=== PATIENT | female | born 1985 | race Caucasian/White ===

== ENCOUNTER 2018-07-31 20:25 | Emergency (ER) | payer OTHER ==
[2018-07-31] MEDS ORDERED: ALBUTEROL NEB 2.5 MG/3 ML INH STA ×2 (20:39→22:28)
[2018-07-31] MEDS ORDERED: IPRATROPIUM 0.2 MG/ML NEB INH STA (20:39)
[2018-07-31 20:57] LABS: BASOPHILS # (AUTO) 0.1 10^3/uL (0.0-0.1); BASOPHILS % (AUTO) 0.6 %; EOSINOPHILS # (AUTO) 0.4 10^3/uL (0.0-0.7); EOSINOPHILS % (AUTO) 2.3 %; HGB - HEMOGLOBIN 15.1 g/dL (12.0-16.0); LYMPHOCYTES # (AUTO) 1.7 10^3/uL (1.5-3.5); LYMPHOCYTES % (AUTO) 9.7 %; MEAN CORPUSCULAR HEMOGLOBIN 30.2 pg (27.0-31.0); MEAN CORPUSCULAR HGB CONC 34.1 g/dL (32.0-36.0); MEAN CORPUSCULAR VOLUME 88.4 fL (81.0-99.0); MONOCYTES # (AUTO) 0.8 10^3/uL (0.0-1.0); MONOCYTES % (AUTO) 4.8 %; NEUTROPHILS # (AUTO) 14.2 10^3/uL (1.5-6.6); NEUTROPHILS % (AUTO) 82.6 %; PLT - PLATELET COUNT 287 10^3/uL (130-450); RED BLOOD COUNT 4.99 10^6/uL (4.20-5.40); RED CELL DISTRIBUTION WIDTH 14.1 % (12.0-15.0); WHITE BLOOD COUNT 17.1 x10^3/uL (4.8-10.8)
--- NOTE | 2018-07-31 20:57 | ED Physician Documentation ---
History of Present Illness - Stated complaint Stated Complaint: SOA/COUGH - Chief complaint Chief Complaint: General - Additonal information Additional information: 33-year-old female presents the emergency department with increasing shortness of breath, cough, nasal congestion and wheezing. The patient is a heavy smoker and reports URI symptoms earlier this week. Today the patient does develop significant wheezing and shortness of breath. The patient denies any history of lung disease. Symptoms are described as severe. No relieving factors. No other associated symptoms. No radiation of symptoms Review of Systems Constitutional: reports: Fever, Chills, Fatigue Eyes: denies: Loss of vision Ears: denies: Loss of hearing Nose: denies: Rhinorrhea / runny nose Throat: denies: Dental pain / toothache Cardiac: denies: Chest pain / pressure Respiratory: reports: Dyspnea, Cough, Wheezing GI: denies: Abdominal Pain : denies: Dysuria Skin: denies: Rash Musculoskeletal: denies: Neck pain Neurologic: denies: Generalized weakness Psychiatric: denies: Hallucinations Immunocompromised: denies: Chemotherapy PD PAST MEDICAL HISTORY - Past Medical History Past Medical History: Yes : None Psych: None Musculoskeletal: None - Past Surgical History Past Surgical History: No - Present Medications Home Medications: Ambulatory Orders Medication Instructions Recorded Confirmed RX: Albuterol Sulf [Ventolin Hfa 1 - 2 puffs INH Q4HR PRN #1 inhaler 08/01/18 Inhaler] RX: Doxycycline Hyclate 100 mg PO BID #20 capsule 08/01/18 - Allergies Allergies/Adverse Reactions: Allergies Allergy/AdvReac Type Severity Reaction Status Date / Time No Known Drug Allergies Allergy Verified 07/31/18 20:30 - Social History Does the pt smoke?: Yes Smoking Status: Heavy tobacco smoker Does the pt drink ETOH?: No Does the pt have substance abuse?: No - Immunizations Immunizations are current?: Yes - POLST Patient has POLST: No PD ED PE NORMAL - General General: Alert and oriented X 3. No: No acute distress (The patient appears short of breath) - HEENT HEENT: Atraumatic, PERRL, EOMI, Ears normal - Neck Neck: No JVD - Cardiac Cardiac: Other (Regular tachycardia) - Respiratory Respiratory: Other (Increased respiratory rate and diffuse wheezing with poor aeration) - Abdomen Abdomen: Soft, Non tender - Derm Derm: Normal color - Extremities Extremities: No deformity, No edema - Neuro Neuro: Alert and oriented X 3, Normal speech - Psych Psych: Normal affect Results - Vitals Vitals: Vital Signs - 24 hr 07/31/18 07/31/18 07/31/18 20:26 21:05 22:20 Temperature 36.4 C L 36.8 C Heart Rate 129 H 118 H 127 H Respiratory 24 15 21 Rate Blood Pressure 114/90 H 138/89 H O2 Saturation 92 92 07/31/18 07/31/18 07/31/18 22:34 23:08 23:39 Temperature 36.9 C Heart Rate 112 H 114 H 118 H Respiratory 15 15 20 Rate Blood Pressure 111/54 L 115/56 L O2 Saturation 96 93 08/01/18 08/01/18 08/01/18 00:20 00:26 01:27 Temperature 36.9 C Heart Rate 99 Respiratory 16 Rate Blood Pressure 108/61 O2 Saturation 87 L 90 L 88 L 08/01/18 08/01/18 01:56 02:36 Temperature 37 C Heart Rate 101 H 111 H Respiratory 23 24 Rate Blood Pressure 122/74 128/73 O2 Saturation 95 91 L Oxygen O2 Source Room air Oxygen Flow Rate 2 - Labs Labs: Laboratory Tests 07/31/18 07/31/18 07/31/18 20:40 20:52 20:52 WBC 17.1 H RBC 4.99 Hgb 15.1 Hct 44.1 MCV 88.4 MCH 30.2 MCHC 34.1 RDW 14.1 Plt Count 287 MPV 8.0 Neut # (Auto) 14.2 H Lymph # (Auto) 1.7 [place] # (Auto) 0.8 Eos # (Auto) 0.4 Baso # (Auto) 0.1 Absolute Nucleated RBC 0.01 Nucleated RBC % 0.0 D-Dimer 256.3 H Sodium 136 Potassium 3.9 Chloride 98 L Carbon Dioxide 27 Anion Gap 11.0 BUN 7 Creatinine 0.8 Estimated GFR (MDRD) 83 L Glucose 121 H Calcium 9.1 - Rads (name of study) CTA chest Radiology: Final report received (There is moderate severity mosaic attenuation within the lung parenchyma. I suspect that this is related to small airways disease. Differential diagnosis includes hypersensitivity pneumonitis or constrictive bronchiolitis. Other nonspecific pneumonitis is in the differential diagnosis.) PD MEDICAL DECISION MAKING - ED course ED course: The the patient had improvement, but was still requiring supplemental oxygen and was hypoxic on room air. I discussed the plan with the patient for admission to the hospital but the patient refused. The patient reports that she recently moved to the area and has nobody to help watch her children. The patient is requesting discharge at this time. I discussed with her warning signs and recommended that she should return to the emergency department any point for reevaluation. - Sepsis Event Vital Signs: Vital Signs - 24 hr 07/31/18 07/31/18 07/31/18 20:26 21:05 22:20 Temperature 36.4 C L 36.8 C Heart Rate 129 H 118 H 127 H Respiratory 24 15 21 Rate Blood Pressure 114/90 H 138/89 H O2 Saturation 92 92 07/31/18 07/31/18 07/31/18 22:34 23:08 23:39 Temperature 36.9 C Heart Rate 112 H 114 H 118 H Respiratory 15 15 20 Rate Blood Pressure 111/54 L 115/56 L O2 Saturation 96 93 08/01/18 08/01/18 08/01/18 00:20 00:26 01:27 Temperature 36.9 C Heart Rate 99 Respiratory 16 Rate Blood Pressure 108/61 O2 Saturation 87 L 90 L 88 L 08/01/18 08/01/18 01:56 02:36 Temperature 37 C Heart Rate 101 H 111 H Respiratory 23 24 Rate Blood Pressure 122/74 128/73 O2 Saturation 95 91 L Oxygen O2 Source Room air Oxygen Flow Rate 2 Departure - Departure Disposition: 01 Home, Self Care Clinical Impression: Dyspnea, Reactive airway disease, Hypoxia, Acute bronchitis Condition: Fair Follow-Up: Debra Miranda, MSN, BUSINESS INTELLIGENCE DIRECTOR-C [Credentialed Staff Provider] - Within 3 Days Prescriptions: RX: Albuterol Sulf [Ventolin Hfa Inhaler] 1 - 2 puffs INH Q4HR PRN #1 inhaler PRN Reason: Shortness Of Air/Wheezing RX: Doxycycline Hyclate 100 mg PO BID #20 capsule Comments: You have declined admission to the hospital and want to be discharged home. You understand that I felt that you would benefit from admission to the hospital given the significant pulmonary symptoms you are experiencing. Please follow-up with primary care for ongoing management. Please return to the emergency department immediately for reevaluation and further treatment and management at any point. Discharge Date/Time: 08/01/18 02:40
[2018-07-31 21:06] LABS: CALCIUM 9.1 mg/dL (8.5-10.3); CREATININE 0.8 mg/dL (0.4-1.0)
[2018-07-31] MEDS ORDERED: SODIUM CHLORIDE 0.9% 1,000 ML IV ONE (21:27)
[2018-07-31] MEDS ORDERED: DEXAMETHASONE 10 MG/ML VIAL IV STA (21:27)
[2018-07-31] MEDS ORDERED: ACETAMINOPHEN 500 MG TABLET PO STA (22:08)
[2018-07-31] MEDS ORDERED: IPRATROPIUM/ALBUTEROL 3 ML NEB INH STA (22:28)
--- NOTE | 2018-07-31 22:32 | XRAY Report ---
Reason: cough Procedure Date: 07/31/2018 Accession Number: [id number] / [id number] Procedure: XR - Chest 2 View X-Ray CPT Code: 14233 FULL RESULT: EXAM: CHEST RADIOGRAPHY EXAM DATE: 07/31/2018 10:15 PM. CLINICAL HISTORY: Productive cough. Shortness of breath. COMPARISON: None. TECHNIQUE: 2 views. FINDINGS: Lungs/Pleura: No focal opacities evident. No pleural effusion. No pneumothorax. Normal volumes. Mediastinum: Heart and mediastinal contours are unremarkable. Other: No bony abnormality identified. IMPRESSION: Normal 2-view chest radiography. RADIA
[2018-08-01] MEDS ORDERED: IOPAMIDOL-300 100 ML VIAL ONE (00:52)
[2018-08-01] MEDS ORDERED: IOPAMIDOL-300 100 ML VIAL IVP ONE ×2 (01:00→01:12)
[2018-08-01] MEDS ORDERED: ALBUTEROL NEB 2.5 MG/3 ML INH STA (01:41)
--- NOTE | 2018-08-01 01:59 | CT Report ---
Reason: SOA, elevated D-Dimer Procedure Date: 08/01/2018 Accession Number: [id number] / [id number] Procedure: CT - Chest Angio (PE) CPT Code: FULL RESULT: EXAM: CT ANGIOGRAM CHEST EXAM DATE: 08/01/2018 01:24 AM. CLINICAL HISTORY: Shortness of breath. Elevated D-dimer. COMPARISON: CHEST 2 VIEW 07/31/2018 10:10 PM. TECHNIQUE: Routine helical imaging was performed through the chest in the pulmonary arterial phase. IV Contrast: ISOVUE 300 80mL. Reconstructions: Coronal 3-D MIP reconstructions.Sagittal and coronal. In accordance with CT protocol optimization, one or more of the following dose reduction techniques were utilized for this exam: automated exposure control, adjustment of mA and/or KV based on patient size, or use of iterative reconstructive technique. FINDINGS: Pulmonary Arteries: There is adequate opacification up to the proximal segmental arteries. No evidence for main, lobar, or proximal segmental pulmonary emboli. Distal segmental and subsegmental vessels are difficult to assess due to suboptimal opacification. Lungs and Pleura: There is moderate patchy multifocal lobular distribution groundglass opacity with mild upper lobe predominance. No significant effusion. No definite pneumothorax. Central Airways: Visualized central airways are without suspicious filling defects. Chest Wall: No significant abnormality. Thyroid: No significant abnormality. Mediastinum: There is a nonspecific pathologically enlarged right-sided suprahilar lymph node measuring 3.0 x 1.9 cm (image 49 series 4). Increased number of small right paratracheal as well as mediastinal lymph nodes are present. These are nonspecific. Heart: Normal in size. No significant pericardial effusion. Aorta: Normal caliber. Upper Abdomen: Suspect moderate to severe hepatic steatosis. Bones: No suspicious bony lesions evident. IMPRESSION: 1. No evidence of pulmonary embolism. 2. There is moderate severity mosaic attenuation within the lung parenchyma. I suspect that this is related to small airways disease. Differential diagnosis includes hypersensitivity pneumonitis or constrictive bronchiolitis. Other nonspecific pneumonitis is in the differential diagnosis. 3. No significant pulmonary consolidation. No effusion. RADIA
[2018-08-01] MEDS ORDERED: DOXYCYCLINE 100 MG TABLET PO STA (02:04)
[2018-08-01 02:37] VITALS: BP 128/73
== END 2018-08-01 02:40 | disposition home or self-care (01) ==
LOC: ED 20:25
DX: J45.909 Unspecified asthma, uncomplicated (principal); R09.02 Hypoxemia; J20.9 Acute bronchitis, unspecified; F17.200 Nicotine dependence, unspecified, uncomplicated
CPT/HCPCS: 36415; 71046; 71275; 80048; 85025; 85379; 94640; 96361; 96365; 99284; A9270; Q9967

== ENCOUNTER 2018-08-01 04:37 | Inpatient (IN) | payer OTHER ==
--- NOTE | 2018-08-01 04:42 | ED Physician Documentation ---
History of Present Illness - Stated complaint Stated Complaint: SHORTNESS OF BREATH - Additonal information Additional information: 33-year-old female Return to the emergency department with increasing shortness of breath and dyspnea on exertion. The patient was in the emergency department earlier and declined admission to the hospital. The patient returns due to excessive difficulty breathing. No significant improvement from before. Review of Systems Constitutional: denies: Fever, Myalgias Eyes: denies: Loss of vision Ears: denies: Ear pain Nose: denies: Rhinorrhea / runny nose Cardiac: denies: Chest pain / pressure Respiratory: reports: Dyspnea, Wheezing GI: denies: Abdominal Pain : denies: Dysuria Skin: denies: Rash Musculoskeletal: denies: Neck pain Neurologic: denies: Generalized weakness Psychiatric: denies: Hallucinations PD PAST MEDICAL HISTORY - Past Medical History : None Psych: None Musculoskeletal: None - Past Surgical History Past Surgical History: No - Present Medications Home Medications: Ambulatory Orders Medication Instructions Recorded Confirmed Albuterol Sulf [Ventolin Hfa 1 - 2 puffs INH Q4HR PRN #1 inhaler 08/01/18 Inhaler] Doxycycline Hyclate 100 mg PO BID #20 capsule 08/01/18 - Allergies Allergies/Adverse Reactions: Allergies Allergy/AdvReac Type Severity Reaction Status Date / Time No Known Drug Allergies Allergy Verified 07/31/18 20:30 - Social History Does the pt smoke?: Yes Smoking Status: Heavy tobacco smoker Does the pt drink ETOH?: No Does the pt have substance abuse?: No - Immunizations Immunizations are current?: Yes - POLST Patient has POLST: No PD ED PE NORMAL - General General: Alert and oriented X 3. No: No acute distress (The patient appears to be in significant shortness of breath) - HEENT HEENT: Atraumatic, PERRL, EOMI, Ears normal - Neck Neck: No JVD - Cardiac Cardiac: Other (Tachycardia, regular rate) - Respiratory Respiratory: Other (Increased respiratory rate with diffuse bilateral wheezing) - Abdomen Abdomen: Non tender - Derm Derm: Normal color - Extremities Extremities: No deformity, No edema - Neuro Neuro: Alert and oriented X 3, Normal speech - Psych Psych: Normal mood Results - Vitals Vitals: Vital Signs - 24 hr 08/01/18 08/01/18 04:42 04:53 Temperature 36.9 C Heart Rate 128 H 112 H Respiratory 24 27 H Rate Blood Pressure 148/80 H 148/80 H O2 Saturation 89 L 93 Oxygen O2 Source Nasal cannula Oxygen Flow Rate 2 PD MEDICAL DECISION MAKING - ED course ED course: The patient was treated for an extensive period of time earlier in the evening and the patient declined admission at that point. Patient returns and is still significantly short of breath and now agrees to admission. The case was discussed with the hospitalist Dr. Powell who accepts the patient onto her service. - Sepsis Event Vital Signs: Vital Signs - 24 hr 08/01/18 08/01/18 04:42 04:53 Temperature 36.9 C Heart Rate 128 H 112 H Respiratory 24 27 H Rate Blood Pressure 148/80 H 148/80 H O2 Saturation 89 L 93 Oxygen O2 Source Nasal cannula Oxygen Flow Rate 2 Departure - Departure Disposition: ED Place in Observation Clinical Impression: Bronchitis, Hypoxia Acute bronchitis Qualifiers: Bronchitis organism: unspecified organism Qualified Code(s): J20.9 - Acute bronchitis, unspecified
[2018-08-01] MEDS ORDERED: ALBUTEROL NEB 2.5 MG/3 ML INH STA (05:13)
[2018-08-01] MEDS ORDERED: ONDANSETRON 4 MG/2 ML VIAL IVP PRN (05:19)
[2018-08-01] MEDS ORDERED: SODIUM CHLORIDE FLUSH 0.9% 10 ML SYRINGE IVP PRN (05:19)
[2018-08-01] MEDS ORDERED: AZITHROMYCIN INJ 500 MG in SODIUM CHLORIDE 0.9% 250 ML IV STA (05:24)
--- NOTE | 2018-08-01 06:29 | HISTORY & PHYSICAL EXAMINATION ---
Chief Complaint - Chief Complaint Chief Complaint: cough and wheezing w sob History of Present Illness - Admitted From Admitted From:: Home/ER - History Obtained From Records Reviewed: [facility] History obtained from: patient Exam Limitations: none - History of Present Illness HPI Comment/Other: She is a 33-year-old white female who moved from [place] after driving here a month ago. She started on [place] and went through [place], [place], [place], [place], [place] and then [facility]. She is always had a little bit of problem with wheezing and coughing since the age of about 21-22. She smokes 1 pack per day and started smoking at the age of 14. She moved here because she loves the [place], this is where she was proposed to by her . She is originally from [place], [place]. Her is an coil winder strap. He still flies back between [facility] and [place] to work in the oil rendon there. No one else is sick in her family. About a week ago she thought she developed a cold. Cough, sneezing, runny nose, sore throat. It made her chest feel congested and she started wheezing and coughing even more. It has been nonstop. No fever, no chills. Appetite is been a little bit diminished. No phlegm production, no hemoptysis. She came to the emergency room on July 31,Yesterday. Was in the emergency room around 6 hours with nebulizers and a steroid dose. She was discharged home with albuterol, doxycycline. He felt that she should come to into the hospital. She wanted to go home. She now returns in the early hours of the today continuing to cough and wheeze. He has given her more nebulizers and Decadron. No response and he would like her for treatment History - Past Medical History Cardiovascular: reports: Other (morbind obesity for 2-3 years) Respiratory: reports: COPD (Coughing and wheezing with mild postnasal drip since the age of 21-23) Neuro: reports: None Endocrine/Autoimmune: reports: None GI: reports: None CHIEF ACCOUNTANT: reports: Other () : reports: None HEENT: reports: None Psych: reports: None Musculoskeletal: reports: None MRSA Hx?: No - Family & Social History Family History Comment/Other: Mom is in her 60s and has depression. She does not know her father. No illness in siblings. Only child is healthy Living arrangement: At home Living Situation: With spouse/s.o. Social History Notes: She was born in [facility]. 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 She met her and they got engaged when he proposed here on [facility] and that is what made them come back here. They have only lived here for a month. He still continues to fly back to [place] to work in the oil rendon. She has been smoking 1 pack per day since the age of 15. She has no problems with alcohol abuse. She does not have any experience with cocaine, heroin, LSD, methamphetamines. - Substance History Use: Uses substance without health or social issues: Tobacco Use Issues: uncomplicated Abuse: Recurrent use of substance despite neg consequences: NONE Dependence: Experiences withdrawal or developed tolerances: Tobacco Dependence Issues: Anxiety Disorder - POLST Patient has POLST: No POLST Status: Full Code Meds/Allgy - Home Medications Home Medications: Ambulatory Orders Medication Instructions Recorded Confirmed Albuterol Sulf [Ventolin Hfa 1 - 2 puffs INH Q4HR PRN #1 inhaler 08/01/18 Inhaler] Doxycycline Hyclate 100 mg PO BID #20 capsule 08/01/18 - Allergies Allergies/Adverse Reactions: Allergies Allergy/AdvReac Type Severity Reaction Status Date / Time No Known Drug Allergies Allergy Verified 07/31/18 20:30 Review of Systems - Constitutional Constitutional: reports: Fatigue, Poor appetite. denies: Fever, Chills, Malaise, Weakness, Diaphoresis - Eyes Eyes: denies: Pain, Irritation, Amaurosis, Blurred vision, Field loss, Vision loss - Ears, Nose & Throat Ears, Nose & Throat: reports: Nasal obstruction, Nasal congestion, Postnasal drainage, Sore throat, Hoarseness. denies: Ear pain, Hearing loss, Hearing aids, Nasal pain, Nasal discharge - Cardiovascular Cariovascular: denies: Irregular heart rate, Palpitations, Chest pain, Edema - Respiratory Respiratory: reports: Cough, Wheezing, SOB at rest, SOB with exertion. denies: Sputum production, Snoring, Hemoptysis, Orthopnea, Apnea, Stridor - Gastrointestinal Gastrointestinal: reports: Diarrhea (Unless she eats eggs. Eggs now make her have quite a bit of diarrhea if she eats them). denies: Abdominal pain, Abdominal distention, Constipation, Change in bowel habits, Black stools, Bloody stools, Vomiting, Bile emesis - Genitourinary Genitourinary: reports: Urgency (There is now occurring after coitus), Other (. Change: After having sex, she is now starting to have trace bleeding. There is no pain with sex. Other than that trace bleeding she has not had a regular menstrual cycle for 2 years.Her is not using any control such as condom. She is not on oral contraceptives nor does she have an IUD. In spite of that she has not Gotten .). denies: Dysuria, Frequency - Musculoskeletal Musculoskeletal: denies: Muscle pain, Back pain, Muscle aches, Joint pain - Integumentary Integumentary: denies: Rash, Lesions - Neurological Neurological: reports: Headache (Generalized, diffuse. Ongoing for the last week or 2 and nonstop.). denies: General weakness, Focal weakness - Psychiatric Psychiatric: denies: Depression, Anxiety, Suicidal - Endocrine Endocrine: denies: Polyuria, Polydypsia - Hematologic/Lymphatic Hematologic/Lymphatic: denies: Anemia, Bruising, Petechiae Exam - Vital Signs Reviewed Vital Signs: Yes Vital Signs: Vital Signs x48h Temp Pulse Resp BP Pulse Ox 08/01/18 05:35 114 H 28 H 139/86 H 93 08/01/18 05:28 120 H 28 H 08/01/18 04:53 112 H 27 H 148/80 H 93 08/01/18 04:42 36.9 C 128 H 24 148/80 H 89 L - Physical Exam General Appearance: positive: Alert, Moderate distress, Other (Obese white female sitting upright in the bed, cannot lay down because of coughing and wheezing. Asking for a nicotine patch. Stress is from respiratory effort) Eyes Bilateral: positive: PERRL, Other (Sclera injected) ENT: positive: Other (Nasal tone of voice, rhinorrhea, coryza, back of throat injected but no exudate) Neck: positive: Lymphadenopathy (R) (shotty anterior cervical), Lymphadenopathy (L) (shotty anterior cervical). negative: Stiff neck, Carotid bruit Respiratory: positive: Chest non-tender, Wheezes, Other (Respiratory rate 28 at rest.). negative: Rales, Rhonchi Cardiovascular: positive: Regular rate & rhythm. negative: Systolic murmur, Gallop/S4, Friction rub Peripheral Pulses: positive: 2+ Abdomen: positive: Non-tender, Nml bowel sounds, No distention, Other (large abdominal panus). negative: Guarding, Rebound Skin: positive: Warm, Dry Extremities: positive: Non-tender, No pedal edema Neurologic/Psychiatric: positive: Oriented x3, CN's nml (2-12), Motor nml, Sensation nml Conclusion/Plan - Problem List (1) Asthma with COPD with exacerbation Conclusion/Plan: She presents as acute exacerbation of a long time asthmatic type problem in a smoker 1 pack per day. Groundglass opacity is seen on this patient CT.There is also an abnormal mediastinal node. It is not a high resolution CT. There is no fibrosis, and appears to be acute in its manifestation. The differential d iagnosis would be pulmonary edema, pulmonary hemorrhage, viral pneumonitis, acute eosinophilic pneumonia, acute phase radiation pneumonitis, Possibly atypical manifestation of sarcoidosis. Viral pneumonitis definitely Would apply to her. She appears to have had an antecedent viral illness that she thought was a cold. As for eosinophilic pneumonitis, there is no eosinophilia on Labs.She has not had radiation therapy. Could she possibly have pulmonary edema but she gives no antecedent history of a progressive dyspnea on exertion with leg edema. Plan: Place patient in observation status to see if we can turn her around with IV steroids, nebulizers, and IV antibiotics Reassess later on today. Consider transitioning to inpatient status if there is no improvement. I have also explained to her that her CT is not normal with regards to her groundglass opacities. In the outpatient setting she may need to be referred to a beet worker for bronchoscopy, lavage, or even biopsy. Since she is new to the [place], she will need to establish herself with a primary care provider and then be referred. Options would be to see someone in [place] with referral or go ahead and establish herself with [facility] that has the nearby beet worker for her to see I would also recommend limited CT of sinuses later today to evaluated for rhinosinusitis with asthma. (2) Tobacco abuse Conclusion/Plan: Requesting nicotine patch and that will be ordered (3) Dysfunctional uterine bleeding Conclusion/Plan: This is an association with weight gain over the last 3-4 years, amenorrhea, bleeding only with coitus. Plan: Check TSH Pelvic ultrasound - Lab Results Lab results reviewed: Yes Other Lab Results: Laboratory Tests 07/31/18 07/31/18 07/31/18 20:40 20:52 20:52 WBC 17.1 H Hgb 15.1 Hct 44.1 Plt Count 287 D-Dimer 256.3 H Sodium 136 Potassium 3.9 Chloride 98 L Carbon Dioxide 27 Anion Gap 11.0 BUN 7 Creatinine 0.8 Glucose 121 H - Diagnostic Imaging Results Diagnostic Imaging Results: positive: Final report reviewed Diagnostic Imaging Results Comments: CTA of chest: FINDINGS: Pulmonary Arteries: There is adequate opacification up to the proximal segmental arteries. No evidence for main, lobar, or proximal segmental pulmonary emboli. Distal segmental and subsegmental vessels are difficult to assess due to suboptimal opacification. Lungs and Pleura: There is moderate patchy multifocal lobular distribution groundglass opacity with mild upper lobe predominance. No significant effusion. No definite pneumothorax. Central Airways: Visualized central airways are without suspicious filling defects. Chest Wall: No significant abnormality. Thyroid: No significant abnormality. Mediastinum: There is a nonspecific pathologically enlarged right-sided suprahilar lymph node measuring 3.0 x 1.9 cm (image 49 series 4). Increased number of small right paratracheal as well as mediastinal lymph nodes are present. These are nonspecific. Heart: Normal in size. No significant pericardial effusion. Aorta: Normal caliber. Upper Abdomen: Suspect moderate to severe hepatic steatosis. Bones: No suspicious bony lesions evident. IMPRESSION: 1. No evidence of pulmonary embolism. 2. There is moderate severity mosaic attenuation within the lung parenchyma. I suspect that this is related to small airways disease. Differential diagnosis includes hypersensitivity pneumonitis or constrictive bronchiolitis. Other nonspecific pneumonitis is in the differential diagnosis. 3. No significant pulmonary consolidation. No effusion. Chest Xray: FINDINGS: Lungs/Pleura: No focal opacities evident. No pleural effusion. No pneumothorax. Normal volumes. Mediastinum: Heart and mediastinal contours are unremarkable. Other: No bony abnormality identified. IMPRESSION: Normal 2-view chest radiography. Core Measures - Anticipated LOS I expect patient to be DC'd or transferred within 96 hours.: Yes - DVT/VTE - Prophylaxis VTE/DVT Device ordered at admit?: Yes
[2018-08-01] MEDS: IPRATROPIUM/ALBUTEROL 3 ML NEB INH SCH ×4 (07:10→19:14)
[2018-08-01] MEDS: POLYETHYLENE GLYCOL 3350 17 GM PACKET PO SCH (08:21)
[2018-08-01] MEDS: methylPREDNISolone SUCCINATE 125 MG/2 ML VIAL IVP SCH ×3 (08:22→21:23)
[2018-08-01] MEDS: SODIUM CHLORIDE FLUSH 0.9% 10 ML SYRINGE IVP SCH ×2 (08:22→15:31)
[2018-08-01] MEDS: ENOXAPARIN 40 MG/0.4 ML SYRINGE SUBQ SCH (08:24)
[2018-08-01 08:43] LABS: BASOPHILS % (AUTO) 0.3 %; LYMPHOCYTES # (AUTO) 0.6 10^3/uL (1.5-3.5); LYMPHOCYTES % (AUTO) 3.8 %; MEAN CORPUSCULAR HEMOGLOBIN 30.6 pg (27.0-31.0); MEAN CORPUSCULAR HGB CONC 33.3 g/dL (32.0-36.0); MEAN CORPUSCULAR VOLUME 91.9 fL (81.0-99.0); MEAN PLATELET VOLUME 8.5 fL (7.9-10.8); MONOCYTES # (AUTO) 0.5 10^3/uL (0.0-1.0); MONOCYTES % (AUTO) 3.3 %; NEUTROPHILS # (AUTO) 14.5 10^3/uL (1.5-6.6); NEUTROPHILS % (AUTO) 92.6 %; PLT - PLATELET COUNT 267 10^3/uL (130-450); RED BLOOD COUNT 4.57 10^6/uL (4.20-5.40); WHITE BLOOD COUNT 15.6 x10^3/uL (4.8-10.8)
[2018-08-01 08:51] LABS: ALKALINE PHOSPHATASE 86 IU/L (42-121); ALT ALANINE AMINOTRANSFERASE 46 IU/L (10-60); AST ASPARTATE AMINOTRANSFERASE 33 IU/L (10-42); BILIRUBIN,TOTAL 0.3 mg/dL (0.2-1.0); BUN - BLOOD UREA NITROGEN 11 mg/dL (6-20); CALCIUM 8.8 mg/dL (8.5-10.3); CARBON DIOXIDE - CO2 20 mmol/L (21-32); CHLORIDE 105 mmol/L (101-111); CREATININE 0.9 mg/dL (0.4-1.0); GFR - MDRD 73 (>89); GLUCOSE 399 mg/dL (70-100); PHOSPHORUS 1.1 mg/dL (2.5-4.6); SODIUM 135 mmol/L (135-145); TOTAL PROTEIN 8.1 g/dL (6.7-8.2)
[2018-08-01] MEDS ORDERED: NICOTINE 14 MG PATCH TOP SCH (09:00)
[2018-08-01 09:27] LABS: HB2 TOTAL 15.1 g/dL; HEMOGLOBIN A1C 0.96 g/dL
[2018-08-01] MEDS ORDERED: SODIUM CHLORIDE 0.9% 500 ML IV ONE (10:07)
[2018-08-01] MEDS: SODIUM CHLORIDE 0.9% 1,000 ML IV SCH ×2 (10:52→19:17)
--- NOTE | 2018-08-01 11:34 | CT Report ---
Reason: new nasal discharge, asthma w groundgla opac Procedure Date: 08/01/2018 Accession Number: [id number] / [id number] Procedure: CT - Sinuses CPT Code: FULL RESULT: CT SINUSES WITHOUT CONTRAST INDICATION: 33-year-old female with new nasal discharge. TECHNIQUE: Helical scan through the orbits and mid facial region with reconstruction into 1 mm axial images. In addition, 1 mm sagittal and coronal re-formations have been generated. This examination was performed using a bone algorithm. Images are only available in bone windows. In accordance with CT protocol optimization, one or more of the following dose reduction techniques were utilized for this exam: automated exposure control, adjustment of mA and/or KV based on patient size, or use of iterative reconstructive technique. COMPARISON: None. FINDINGS: Right Frontal: There is minimal mucosal thickening inferiorly. Otherwise well aerated and clear. Ethmoid: Mucosal thickening is demonstrated in multiple air cells with associated subtotal opacification. No obvious air-fluid level is identified. Maxillary: There is polypoid mucosal thickening that is circumferential in the inferior half of the sinus. No air-fluid level is demonstrated. Sphenoid: Mild mucosal thickening. No air-fluid level. Drainage pathways: There is soft tissue opacification of the frontal recess, probably from localized mucosal thickening and/or retained mucus. Also demonstrated is soft tissue opacification of the maxillary ostium, ethmoid infundibulum and middle meatus, also likely from localized mucosal thickening. No discrete soft tissue density mass lesion is demonstrated. The sphenoethmoidal recess is small but appears patent. Left Frontal: Well aerated and clear. Ethmoid: There is mucosal thickening in multiple air cells with associated subtotal air cells. No obvious air-fluid level is seen. Maxillary: Polypoid-type mucosal thickening without air-fluid level. Sphenoid: Circumferential mucosal thickening. No air-fluid level is identified. Drainage pathways: There is soft tissue opacification of the upper frontal recess, probably from retained mucus. Also demonstrated is soft tissue opacification of the maxillary ostium and ethmoid infundibulum likely from localized mucosal thickening and/or retained mucus. The middle meatus is patent. The sphenoethmoidal recess appears patent. Nasal cavity: There is deviation of the nasal septum inferiorly and anteriorly to the left. An apical spur contacts the medial surface of the inferior turbinate. There is mucosal thickening over the right middle and inferior turbinates with associated significant narrowing of the right-sided nasal passages. The left-sided nasal passages are patent. No evidence of polyp or other mass in the nasal cavity. The nasopharyngeal soft tissue contours appear symmetric. Other: Middle ear cavities and mastoid air cells appear clear. Regional bony structures appear intact. Regional soft tissues are not evaluated. IMPRESSION: 1. Mucosal thickening is seen throughout the maxillary, ethmoid and sphenoid sinuses. However, no air-fluid level is demonstrated to confirm the presence of active infection. 2. No obvious obstructing lesion is demonstrated.
--- NOTE | 2018-08-01 12:26 | PROVIDER PROGRESS NOTE ---
Hospitalist Cross-cover Note - Cross-Cover Note Cross-Cover Note: The patient was seen and examined. Patient continues to have respiratory distress and is hypoxic. She continues to have wheezing on examination. The patient's lactic acid is elevated at 3.1, she does have leukocytosis with WBC of 15.6 and is tachycardic and tachypneic. The patient appears to have sepsis with likely source being pulmonary. It appears unlikely that the patient will be able to recover within the period of observation therefore she will be changed to inpatient status. We will also add ceftriaxone to her antibiotics along with azithromycin to cover for community-acquired pneumonia. The patient will be continued on her nebs and steroids. We will monitor her closely for any deterioration. If the patient is not improving over the next 24-48 hours she will likely need transfer for pulmonology.
[2018-08-01] MEDS: cefTRIAXone 2 GM in SODIUM CHLORIDE 0.9% MINIBAG 100 ML IV SCH (13:19)
--- NOTE | 2018-08-01 13:42 | Ultrasound Report ---
Reason: post coital bleeding w ammenorhea Procedure Date: 08/01/2018 Accession Number: [id number] / [id number] Procedure: US - Pelvic w/Transvaginal CPT Code: FULL RESULT: EXAM: PELVIC ULTRASOUND EXAM DATE: 08/01/2018 11:40 AM. CLINICAL HISTORY: Post coital bleeding w amenorrhea. COMPARISON: None. TECHNIQUE: Realtime transabdominal pelvic scan performed to identify the uterus and adnexa and as an overview of other pelvic structures, followed by transvaginal scan to provide greater detail of the uterus and adnexa, with static image documentation. FINDINGS: Uterus: 7.1 cm, volume 43 cc. Anteverted position. Normal overall size and echotexture. Masses: None. Endometrium: 3 mm. Normal. Cervix: Unremarkable. Right Ovary: Seen transabdominally only. 3.5 x 2.6 x 2.6 cm, volume 12 cc. Normal echotexture and blood flow. Left Ovary: Seen transabdominally only. 2.9 x 2.3 x 1.9 cm, volume 7 cc. Normal echotexture and blood flow. Free Fluid: None. Other: None. IMPRESSION: Normal pelvic ultrasound. RADIA
[2018-08-01] MEDS: ACETAMINOPHEN 325 MG TABLET PO PRN (15:47)
[2018-08-01] MEDS: NICOTINE 21 MG PATCH TOP SCH (17:22)
[2018-08-01] MEDS: INSULIN ASPART 300 UNIT/3 ML PEN SUBQ SCH (21:22)
[2018-08-02] MEDS: oxyCODONE 5 MG TABLET PO PRN ×2 (00:20→05:06)
[2018-08-02] MEDS: ALBUTEROL NEB 2.5 MG/3 ML INH PRN ×2 (00:30→03:19)
[2018-08-02] MEDS: SODIUM CHLORIDE FLUSH 0.9% 10 ML SYRINGE IVP SCH ×3 (02:04→16:46)
[2018-08-02] MEDS: SODIUM CHLORIDE 0.9% 1,000 ML IV SCH ×3 (02:40→17:47)
[2018-08-02] MEDS: methylPREDNISolone SUCCINATE 125 MG/2 ML VIAL IVP SCH ×3 (05:57→21:00)
[2018-08-02] MEDS: BENZOCAINE/MENTHOL LOZENGE MM PRN ×2 (06:00→14:21)
[2018-08-02 06:54] LABS: BASOPHILS # (AUTO) 0.1 10^3/uL (0.0-0.1); BASOPHILS % (AUTO) 0.3 %; HGB - HEMOGLOBIN 13.1 g/dL (12.0-16.0); LYMPHOCYTES % (AUTO) 4.8 %; MEAN CORPUSCULAR HEMOGLOBIN 30.4 pg (27.0-31.0); MEAN CORPUSCULAR HGB CONC 33.5 g/dL (32.0-36.0); MEAN CORPUSCULAR VOLUME 90.9 fL (81.0-99.0); MEAN PLATELET VOLUME 8.6 fL (7.9-10.8); MONOCYTES # (AUTO) 0.5 10^3/uL (0.0-1.0); MONOCYTES % (AUTO) 2.7 %; NEUTROPHILS # (AUTO) 18.6 10^3/uL (1.5-6.6); NEUTROPHILS % (AUTO) 92.2 %; PLT - PLATELET COUNT 280 10^3/uL (130-450); RED CELL DISTRIBUTION WIDTH 14.7 % (12.0-15.0); WHITE BLOOD COUNT 20.2 x10^3/uL (4.8-10.8)
[2018-08-02 06:56] LABS: ALBUMIN 3.5 g/dL (3.2-5.5); ALKALINE PHOSPHATASE 72 IU/L (42-121); ALT ALANINE AMINOTRANSFERASE 35 IU/L (10-60); AST ASPARTATE AMINOTRANSFERASE 19 IU/L (10-42); BILIRUBIN,TOTAL 0.2 mg/dL (0.2-1.0); BUN - BLOOD UREA NITROGEN 8 mg/dL (6-20); CALCIUM 8.4 mg/dL (8.5-10.3); CARBON DIOXIDE - CO2 22 mmol/L (21-32); CHLORIDE 107 mmol/L (101-111); CREATININE 0.6 mg/dL (0.4-1.0); GFR - MDRD 116 (>89); GLUCOSE 268 mg/dL (70-100); MAGNESIUM 2.1 mg/dL (1.7-2.8); PHOSPHORUS 2.6 mg/dL (2.5-4.6); SODIUM 139 mmol/L (135-145); TOTAL PROTEIN 7.1 g/dL (6.7-8.2)
[2018-08-02] MEDS: IPRATROPIUM/ALBUTEROL 3 ML NEB INH SCH (07:13)
[2018-08-02] MEDS: cefTRIAXone 2 GM in SODIUM CHLORIDE 0.9% MINIBAG 100 ML IV SCH (08:18)
[2018-08-02] MEDS: INSULIN ASPART 300 UNIT/3 ML PEN SUBQ SCH ×4 (08:20→21:01)
[2018-08-02] MEDS: AZITHROMYCIN 250 MG TABLET PO SCH (08:20)
[2018-08-02] MEDS: ENOXAPARIN 40 MG/0.4 ML SYRINGE SUBQ SCH (08:22)
[2018-08-02] MEDS: NICOTINE 21 MG PATCH TOP SCH (08:28)
[2018-08-02] MEDS: POLYETHYLENE GLYCOL 3350 17 GM PACKET PO SCH (08:29)
--- NOTE | 2018-08-02 09:26 | XRAY Report ---
Reason: Cough, shortness of breath Procedure Date: 08/02/2018 Accession Number: [id number] / [id number] Procedure: XR - Chest 1 View X-Ray CPT Code: 63552 FULL RESULT: EXAM: CHEST RADIOGRAPHY EXAM DATE: 08/02/2018 09:10 AM. CLINICAL HISTORY: Cough, shortness of breath. COMPARISON: CHEST 2 VIEW 07/31/2018 10:10 PM CHEST ANGIO 08/01/2018 1:14 AM. TECHNIQUE: 1 view. FINDINGS: Lungs/Pleura: Mild bilateral diffuse hazy and reticular opacities. No focal consolidation. No pneumothorax or pleural effusion. Mediastinum: Within exam limitations, the cardiomediastinal contour is normal. Other: None. IMPRESSION: Diffuse bilateral hazy opacities appear increased compared to prior. This finding may reflect pulmonary edema or an atypical inflammatory process, as discussed in the report for yesterday's CT. RADIA
--- NOTE | 2018-08-02 10:43 | PROVIDER PROGRESS NOTE ---
Assessment/Plan - Problem List (1) Sepsis Assessment/Plan: The patient had sepsis on presentation with leukocytosis 15.6, elevated lactic acid of 3.1, tachycardia with heart rate in the 120s, tachypneic with respiratory rate in the mid to high 20s and hypoxia with O2 saturation of 89% on room air. It appears that the patient's sepsis is secondary to respiratory infection thought to be community-acquired or atypical pneumonia. Patient was given IV fluids with improvement in lactic acid and heart rate. Patient also treated with IV antibiotics ceftriaxone and azithromycin and appears to have some improvement in her breathing. Patient's leukocytosis has worsened this may be secondary to steroids. Overall patient seems to be improving and sepsis seems to be resolving. (2) Acute respiratory failure with hypoxia Assessment/Plan: The patient presented with acute respiratory failure with hypoxia. Patient's oxygen saturation dropped to below 90% on room air. Patient had to be placed on 2 L of oxygen. The patient's acute respiratory failure with hypoxia appears to be secondary to pneumonia and reactive airway disease. The patient's CT scan shows changes that are concerning for hypersensitivity pneumonitis or bronchiolitis. At this point patient will be treated with IV antibiotics, IV steroids and nebs. If the patient is not improving we will consider transferring her to high level of care for pulmonology consultation. If patient does improve the patient will still need to have follow-up with pulmonology as an outpatient. Patient appears to be improving and we will try to wean her off of oxygen today. Continue IV antibiotics, steroids and nebs. (3) CAP (community acquired pneumonia) Qualifiers: Laterality: unspecified laterality Qualified Code(s): J18.9 - Pneumonia, unspecified organism Assessment/Plan: The patient has diffuse bilateral hazy opacities. There is still concern for possible pneumonitis or bronchiolitis. For now we will treat the patient for community acquired pneumonia. The patient's lung findings are atypical therefore we will also give atypical coverage with azithromycin. Plan: Patient will be continued on IV ceftriaxone and azithromycin Continue oxygen Continue steroids and nebs Patient appears to be improving (4) Reactive airway disease Qualifiers: Asthma severity: moderate Asthma persistence: persistent Asthma co mplication type: with acute exacerbation Qualified Code(s): J45.41 - Moderate persistent asthma with (acute) exacerbation Assessment/Plan: The patient has a history of smoking but no history of asthma or COPD. The patient appears to have reactive airway disease likely due to ongoing infection or possibly due to hypersensitivity pneumonitis or bronchiolitis given findings on CT scan. For now patient will be treated with nebs, steroids and antibiotics. We are hoping the patient will be able to improve and be able to be weaned off oxygen. The patient will need follow-up outpatient with pulmonology for PFTs and further workup and possible biopsy of her lungs. Patient is improving we will try to wean oxygen. Continue nebs and steroids. 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 She has never been diagnosed with diabetes in the past and never had a hemoglobin A1c tested in the past. The patient is currently on steroids which could be inducing the hyperglycemia. While the patient is hospitalized she will be placed on sliding scale insulin and a diabetic diet. We will check her blood glucose before meals at bedtime. Patient will receive diabetic teaching. At discharge we will place the patient on metformin and have her follow-up with a primary care physician she will need to lose weight and control her diet and exercise. She may still be able to come off of the metformin in the future if she is compliant with lifestyle changes. (6) Tobacco abuse Assessment/Plan: Patient's been smoking 1 pack a day since she was 15 years old. She states that she continues to smoke at home. She understands the risk involved with continued smoking. She is being placed on a nicotine patch while she is hospitalized. She does seem to be committed to quitting. She was counseled. (7) Dysfunctional uterine bleeding Assessment/Plan: TSH was found to be normal and pelvic ultrasound was also normal. Patient will need further workup with obstetrics and gynecology. - Current Meds Current Meds: Current Medications Generic Name Dose Route Start Last Admin Trade Name Freq PRN Reason Stop Dose Admin Acetaminophen 650 mg 08/01/18 05:19 08/01/18 15:47 Tylenol PO 650 mg Q4HR PRN Administration Pain 1 to 4 Azithromycin 500 mg 08/02/18 09:00 08/02/18 08:20 Zithromax PO 500 mg DAILY BROCK Administration Enoxaparin Sodium 40 mg 08/01/18 09:00 08/02/18 08:22 Lovenox SUBQ 40 mg DAILY BROCK Administration Sodium Chloride 1,000 mls @ 125 mls/hr 08/01/18 11:00 08/02/18 02:40 Normal Saline 0.9% IV 125 mls/hr .Q8H BROCK Administration Ceftriaxone Sodium 2 gm/ 100 mls @ 200 mls/hr 08/01/18 13:00 08/02/18 09:21 Sodium Chloride IV Infused DAILY BROCK Infusion Insulin Aspart 1 - 5 unit 08/01/18 21:00 08/02/18 08:20 Novolog SUBQ 3 unit 0800,1200,1700,2100 BROCK Administration Protocol Methylprednisolone Sodium Succinate 125 mg 08/01/18 06:00 08/02/18 05:57 Solu-Medrol (125mg Vial) IVP 125 mg TID BROCK Administration Nicotine 1 patch 08/01/18 15:50 08/02/18 08:28 Nicoderm TOP 1 patch DAILY BROCK Administration Oxycodone HCl 5 mg 08/01/18 05:19 08/02/18 05:06 Roxicodone PO 5 mg Q4HR PRN Administration Pain 5 to 7 Polyethylene Glycol 17 gm 08/01/18 09:00 08/02/18 08:29 Miralax PO Not Given DAILY BROCK Sodium Chloride 10 ml 08/01/18 09:00 08/02/18 02:04 Normal Saline Flush 0.9% IVP Not Given 0100,0900,1700 BROCK Throat Lozenges 1 lozenge 08/02/18 05:07 08/02/18 06:00 Cepacol MM 1 lozenge Q2HR PRN Administration Mouth Sore Pain - Lab Result Fish Bone Diagrams: 08/02/18 06:25 08/02/18 06:25 - Diagnostic Imaging Results Diagnostic Imaging Results: Final report reviewed - Additional Planning Condition/Complexity: Guarded My Orders: My Active Orders 08/01/18 11:00 Sodium Chloride 0.9% [Normal Saline 0.9%] 1,000 ml IV 125 mls/hr 08/01/18 13:00 cefTRIAXone [Rocephin] 2 gm Sodium Chloride 0.9% Minibag [Normal Saline 0.9% Minibag] 100 ml IV DAILY 08/01/18 15:50 Nicotine 21 mg Patch [Nicoderm] 1 patch TOP DAILY 08/01/18 18:23 Blood Glucose Checks - Eating [RC] 0800,1200,1700,2100 Initiate Hypoglycemia Protocol [RC] .protocol 08/01/18 21:00 Insulin Aspart [NovoLOG] 1 - 5 unit SUBQ 0800,1200,1700,2100 08/02/18 05:07 Benzocaine/Menthol [Cepacol] 1 lozenge MM Q2HR PRN 08/02/18 09:00 Azithromycin [Zithromax] 500 mg PO DAILY 08/02/18 10:12 Nebulizer/MDI Tx. [RC] QID Resp Teach Nebulizer/MDI [RC] .ONCE Levalbuterol [Xopenex] 1.25 mg INH Q4H PRN 08/02/18 Breakfast Carb-controlled Diet [DIET] 08/03/18 05:00 CBC - COMP BLD CT W/AUTO DIFF [HEME] DAILYLAB CMP, RFLX TO IONIZED CA IF [CHEM] DAILYLAB MAGNESIUM [CHEM] DAILYLAB PHOSPHORUS [CHEM] DAILYLAB 08/03/18 09:00 Chest 1 View X-Ray [XR] DAILY 08/04/18 05:00 CBC - COMP BLD CT W/AUTO DIFF [HEME] DAILYLAB CMP, RFLX TO IONIZED CA IF [CHEM] DAILYLAB MAGNESIUM [CHEM] DAILYLAB PHOSPHORUS [CHEM] DAILYLAB 08/05/18 05:00 CBC - COMP BLD CT W/AUTO DIFF [HEME] DAILYLAB CMP, RFLX TO IONIZED CA IF [CHEM] DAILYLAB MAGNESIUM [CHEM] DAILYLAB PHOSPHORUS [CHEM] DAILYLAB Plan Discussed with:: Patient Time Spent: 31-60 minutes Subjective - Subjective Patient Reports: Cough (Mild), Shortness of Breath (Improved), Other (No fevers or chills) Nursing Reports: No Complaints Objective Vital Signs: Vital Signs - 24 hr 08/01/18 08/01/18 08/01/18 11:14 12:35 15:06 Temperature 36.6 C Heart Rate 110 H 114 H Heart Rate [ 116 H Brachial] Respiratory 20 16 20 Rate Blood Pressure 123/54 L [Left Brachial artery] Blood Pressure [Right Brachial artery] O2 Saturation 93 08/01/18 08/01/18 08/02/18 16:05 19:20 00:21 Temperature 36.5 C 36.5 C Heart Rate 115 H Heart Rate [ 111 H 98 Brachial] Respiratory 24 22 20 Rate Blood Pressure [Left Brachial artery] Blood Pressure 129/62 110/64 [Right Brachial artery] O2 Saturation 93 96 08/02/18 08/02/18 08/02/18 00:30 03:20 07:16 Temperature Heart Rate 101 H 103 H 100 Heart Rate [ Brachial] Respiratory 20 20 18 Rate Blood Pressure [Left Brachial artery] Blood Pressure [Right Brachial artery] O2 Saturation 08/02/18 08/02/18 08/02/18 07:43 08:39 08:43 Temperature 36.3 C L Heart Rate Heart Rate [ 104 H 103 H 107 H Brachial] Respiratory 21 24 24 Rate Blood Pressure [Left Brachial artery] Blood Pressure 111/57 L [Right Brachial artery] O2 Saturation 94 93 92 08/02/18 09:30 Temperature Heart Rate Heart Rate [ 105 H Brachial] Respiratory Rate Blood Pressure [Left Brachial artery] Blood Pressure [Right Brachial artery] O2 Saturation 94 Oxygen O2 Source Room air Oxygen Flow Rate 2 I&O (Last 24 Hrs): Intake and Output Totals x24h 07/31/18 08/01/18 08/02/18 23:59 23:59 23:59 Intake Total 3120 1292.917 Output Total 3000 1850 Balance 120 -557.083 General: Alert, Oriented x3, Mild distress (Respiratory) HEENT: Atraumatic, PERRLA, EOMI, Mucous membr. moist/pink Neck: Supple, No JVD, No thyromegaly, +2 carotid pulse wo bruit, No LAD Lymphatic: no adenopathy Neuro: Alert, Non Focal, CN 2-12 Grossly Intact, Oriented Times 3 Cardiovascular: No murmurs, Other (Tachycardic) Respiratory: Wheezes, Rhonchi, Other (Decreased air movement bilaterally but improved since yesterday) Abdomen: Normal bowel sounds, Soft, No tenderness, No hepatospenomegaly Extremities: No clubbing, No cyanosis, No edema, Normal pulses Skin: No rashes, No breakdown - Results Results: Laboratory Results WBC 20.2 x10^3/uL (4.8-10.8) H 08/02/18 06:25 RBC 4.30 10^6/uL (4.20-5.40) 08/02/18 06:25 Hgb 13.1 g/dL (12.0-16.0) 08/02/18 06:25 Hct 39.1 % (37.0-47.0) 08/02/18 06:25 MCV 90.9 fL (81.0-99.0) 08/02/18 06:25 MCH 30.4 pg (27.0-31.0) 08/02/18 06:25 MCHC 33.5 g/dL (32.0-36.0) 08/02/18 06:25 RDW 14.7 % (12.0-15.0) 08/02/18 06:25 Plt Count 280 10^3/uL (130-450) 08/02/18 06:25 MPV 8.6 fL (7.9-10.8) 08/02/18 06:25 Neut # (Auto) 18.6 10^3/uL (1.5-6.6) H 08/02/18 06:25 Lymph # (Auto) 1.0 10^3/uL (1.5-3.5) L 08/02/18 06:25 [place] # (Auto) 0.5 10^3/uL (0.0-1.0) 08/02/18 06:25 Eos # (Auto) 0.0 10^3/uL (0.0-0.7) 08/02/18 06:25 Baso # (Auto) 0.1 10^3/uL (0.0-0.1) 08/02/18 06:25 Absolute Nucleated RBC 0.00 x10^3/uL 08/02/18 06:25 Nucleated RBC % 0.0 /100WBC 08/02/18 06:25 Sodium 139 mmol/L (135-145) 08/02/18 06:25 Potassium 3.9 mmol/L (3.5-5.0) 08/02/18 06:25 Chloride 107 mmol/L (101-111) 08/02/18 06:25 Carbon Dioxide 22 mmol/L (21-32) 08/02/18 06:25 Anion Gap 10.0 (6-13) 08/02/18 06:25 BUN 8 mg/dL (6-20) 08/02/18 06:25 Creatinine 0.6 mg/dL (0.4-1.0) 08/02/18 06:25 Estimated GFR (MDRD) 116 (>89) 08/02/18 06:25 Glucose 268 mg/dL (70-100) H 08/02/18 06:25 POC Whole Bld Glucose 243 mg/dL (70 - 100) H 08/02/18 07:36 Glycated Hemoglobin 8.0 % (4.6-6.2) H 08/01/18 08:21 Estim Average Glucose 183 (70-100) H 08/01/18 08:21 Lactic Acid 1.6 mmol/L (0.5-2.2) 08/01/18 17:15 Calcium 8.4 mg/dL (8.5-10.3) L 08/02/18 06:25 Ionized Calcium NO 08/02/18 06:25 Phosphorus 2.6 mg/dL (2.5-4.6) 08/02/18 06:25 Magnesium 2.1 mg/dL (1.7-2.8) 08/02/18 06:25 Total Bilirubin 0.2 mg/dL (0.2-1.0) 08/02/18 06:25 AST 19 IU/L (10-42) 08/02/18 06:25 ALT 35 IU/L (10-60) 08/02/18 06:25 Alkaline Phosphatase 72 IU/L (42-121) 08/02/18 06:25 Total Protein 7.1 g/dL (6.7-8.2) 08/02/18 06:25 Albumin 3.5 g/dL (3.2-5.5) 08/02/18 06:25 Globulin 3.6 g/dL (2.1-4.2) 08/02/18 06:25 Albumin/Globulin Ratio 1.0 (1.0-2.2) 08/02/18 06:25 TSH 0.81 uIU/mL (0.34-5.60) 08/01/18 05:00 ABX Reporting Has patient been on IV antibiotics over the past 48 hours?: No Current Medications - Current Medications Current Medications: Active Medications Generic Name Dose Route Start Last Admin Trade Name Freq PRN Reason Stop Dose Admin Acetaminophen 650 mg 08/01/18 05:19 08/01/18 15:47 Tylenol PO 650 mg Q4HR PRN Administration Pain 1 to 4 Azithromycin 500 mg 09/23/18 09:00 08/02/18 08:20 Zithromax PO 500 mg DAILY BROCK Administration Enoxaparin Sodium 40 mg 08/01/18 09:00 08/02/18 08:22 Lovenox SUBQ 40 mg DAILY BROCK Administration Sodium Chloride 1,000 mls @ 125 mls/hr 08/01/18 11:00 08/02/18 10:38 Normal Saline 0.9% IV 125 mls/hr .Q8H BROCK Administration Ceftriaxone Sodium 2 gm/ 100 mls @ 200 mls/hr 08/01/18 13:00 08/02/18 09:21 Sodium Chloride IV Infused DAILY BROCK Infusion Insulin Aspart 1 - 5 unit 08/01/18 21:00 08/02/18 08:20 Novolog SUBQ 3 unit 0800,1200,1700,2100 BROCK Administration Protocol Levalbuterol HCl 1.25 mg 08/02/18 10:12 Xopenex INH Q4H PRN Shortness of Air/Wheezing Methylprednisolone Sodium Succinate 125 mg 08/01/18 06:00 08/02/18 05:57 Solu-Medrol (125mg Vial) IVP 125 mg TID BROCK Administration Nicotine 1 patch 08/01/18 15:50 08/02/18 08:28 Nicoderm TOP 1 patch DAILY BROCK Administration Ondansetron HCl 4 mg 08/01/18 05:19 Zofran Inj IVP Q6HR PRN Nausea / Vomiting Ondansetron HCl 4 mg 08/01/18 05:19 Zofran Odt TL Q6HR PRN Nausea / Vomiting Oxycodone HCl 5 mg 08/01/18 05:19 08/02/18 05:06 Roxicodone PO 5 mg Q4HR PRN Administration Pain 5 to 7 Polyethylene Glycol 17 gm 08/01/18 09:00 08/02/18 08:29 Miralax PO Not Given DAILY BROCK Sodium Chloride 10 ml 08/01/18 05:19 Normal Saline Flush 0.9% IVP PRN PRN NEEDED PER PROVIDER ORDERS Sodium Chloride 10 ml 08/01/18 09:00 08/02/18 02:04 Normal Saline Flush 0.9% IVP Not Given 0100,0900,1700 [facility] Throat Lozenges 1 lozenge 08/02/18 05:07 08/02/18 06:00 Cepacol MM 1 lozenge Q2HR PRN Administration Mouth Sore Pain No Known Home Medications 08/01/18
[2018-08-02] MEDS: LEVALBUTEROL 1.25 MG/3 ML NEB INH PRN ×3 (11:00→20:16)
[2018-08-02] MEDS: ONDANSETRON ODT 4 MG TABLET TL PRN (12:22)
[2018-08-02] MEDS: ACETAMINOPHEN 325 MG TABLET PO PRN (14:18)
[2018-08-03] MEDS: SODIUM CHLORIDE 0.9% 1,000 ML IV SCH (02:01)
[2018-08-03] MEDS: SODIUM CHLORIDE FLUSH 0.9% 10 ML SYRINGE IVP SCH ×3 (02:02→16:48)
[2018-08-03] MEDS: ONDANSETRON ODT 4 MG TABLET TL PRN ×2 (03:26→09:24)
[2018-08-03] MEDS: ACETAMINOPHEN 325 MG TABLET PO PRN (03:26)
[2018-08-03 05:45] LABS: BASOPHILS % (AUTO) 0.1 %; HGB - HEMOGLOBIN 12.4 g/dL (12.0-16.0); LYMPHOCYTES # (AUTO) 1.1 10^3/uL (1.5-3.5); LYMPHOCYTES % (AUTO) 7.4 %; MEAN CORPUSCULAR HEMOGLOBIN 30.3 pg (27.0-31.0); MEAN CORPUSCULAR HGB CONC 33.4 g/dL (32.0-36.0); MEAN CORPUSCULAR VOLUME 90.7 fL (81.0-99.0); MEAN PLATELET VOLUME 8.5 fL (7.9-10.8); MONOCYTES # (AUTO) 0.5 10^3/uL (0.0-1.0); MONOCYTES % (AUTO) 3.3 %; NEUTROPHILS # (AUTO) 13.5 10^3/uL (1.5-6.6); NEUTROPHILS % (AUTO) 89.2 %; PLT - PLATELET COUNT 288 10^3/uL (130-450); RED CELL DISTRIBUTION WIDTH 14.5 % (12.0-15.0); WHITE BLOOD COUNT 15.1 x10^3/uL (4.8-10.8)
[2018-08-03 06:01] LABS: ALBUMIN 3.3 g/dL (3.2-5.5); ALKALINE PHOSPHATASE 60 IU/L (42-121); ALT ALANINE AMINOTRANSFERASE 42 IU/L (10-60); AST ASPARTATE AMINOTRANSFERASE 29 IU/L (10-42); BILIRUBIN,TOTAL 0.3 mg/dL (0.2-1.0); BUN - BLOOD UREA NITROGEN 14 mg/dL (6-20); CALCIUM 8.1 mg/dL (8.5-10.3); CARBON DIOXIDE - CO2 26 mmol/L (21-32); CHLORIDE 107 mmol/L (101-111); CREATININE 0.6 mg/dL (0.4-1.0); GFR - MDRD 116 (>89); GLUCOSE 205 mg/dL (70-100); MAGNESIUM 2.3 mg/dL (1.7-2.8); PHOSPHORUS 3.8 mg/dL (2.5-4.6); SODIUM 140 mmol/L (135-145); TOTAL PROTEIN 6.6 g/dL (6.7-8.2)
[2018-08-03 06:03] LABS: VBG PH 7.361 (7.31-7.41)
[2018-08-03] MEDS: methylPREDNISolone SUCCINATE 125 MG/2 ML VIAL IVP SCH (06:36)
--- NOTE | 2018-08-03 09:05 | PROVIDER PROGRESS NOTE ---
Assessment/Plan - Problem List (1) Sepsis Assessment/Plan: The patient had sepsis on presentation with leukocytosis 15.6, elevated lactic acid of 3.1, tachycardia with heart rate in the 120s, tachypneic with respiratory rate in the mid to high 20s and hypoxia with O2 saturation of 89% on room air. It appears that the patient's sepsis is secondary to respiratory infection thought to be community-acquired or atypical pneumonia. Patient was given IV fluids with improvement in lactic acid and heart rate. Patient also treated with IV antibiotics ceftriaxone and azithromycin and appears to have significant improvement in her breathing. Leukocytosis improved today but still not back to normal. Resolved (2) Acute respiratory failure with hypoxia Assessment/Plan: The patient presented with acute respiratory failure with hypoxia. Patient's oxygen saturation dropped to below 90% on room air. Patient had to be placed on 2 L of oxygen. The patient's acute respiratory failure with hypoxia appears to be secondary to pneumonia and reactive airway disease. The patient's CT scan shows changes that are concerning for hypersensitivity pneumonitis or bronchio litis. At this point patient will be treated with IV antibiotics, IV steroids and nebs. If the patient is not improving we will consider transferring her to high level of care for pulmonology consultation. If patient does improve the patient will still need to have follow-up with pulmonology as an outpatient. Weaned off O2 yesterday still on nebs, steroids and IV abx Resolved (3) CAP (community acquired pneumonia) Qualifiers: Laterality: unspecified laterality Qualified Code(s): J18.9 - Pneumonia, unspecified organism Assessment/Plan: The patient has diffuse bilateral hazy opacities. There is still concern for possible pneumonitis or bronchiolitis. For now we will treat the patient for community acquired pneumonia. The patient's lung findings are atypical therefore we will also give atypical coverage with azithromycin. Plan: Patient on day 3 of ceftriaxone and azithromycin IV will switch to PO augmentin and azithromycin after today and discharge with PO abx for total of 7 days of treatment On RA this am Continue steroids and nebs WBC is still elevated at 15K Improving (4) Reactive airway disease Qualifiers: Asthma severity: moderate Asthma persistence: persistent Asthma complication type: with acute exacerbation Qualified Code(s): J45.41 - Mode rate persistent asthma with (acute) exacerbation Assessment/Plan: The patient has a history of smoking but no history of asthma or COPD. The patient appears to have reactive airway disease likely due to ongoing infection or possibly due to hypersensitivity pneumonitis or bronchiolitis given findings on CT scan. For now patient will be treated with nebs, steroids and antibiotics. We are hoping the patient will be able to improve and be able to be weaned off oxygen. The patient will need follow-up outpatient with pulmonology for PFTs and further workup and possible biopsy of her lungs. Patient off O2 but still wheezing this am Will continue nebs and switch to PO steroids today Patient will likely be able to go home tomorrow if she continues to improve (5) Diabetes Qualifiers: Diabetes mellitus type: type 2 Diabetes mellitus penitentiary insulin use: without termite renewal inspector use Diabetes mellitus complication status: with hyperglycemia Qualified Code(s): E11.65 - Type 2 diabetes mellitus with hyperglycemia Assessment/Plan: The patient had hyperglycemia on presentation and hemoglobin A1c is found to be elevated at 8.0. She has never been diagnosed with diabetes in the past and never had a hemoglobin A1c tested in the past. The patient is currently on steroids which could be inducing the hyperglycemia. While the patient is hospitalized she will be placed on sliding scale insulin and a diabetic diet. We will check her blood glucose before meals at bedtime. Patient will receive diabetic teaching. At discharge we will place the patient on metformin and have her follow-up with a primary care physician she will need to lose weight and control her diet and exercise. She may still be able to come off of the metformin in the future if she is compliant with lifestyle changes. BG better this am down to 165. On SS insulin and DM diet (6) Tobacco abuse Assessment/Plan: Patient's been smoking 1 pack a day since she was 15 years old. She states that she continues to smoke at home. She understands the risk involved with continued smoking. She is being placed on a nicotine patch while she is hospitalized. She does seem to be committed to quitting. She was counseled. (7) Dysfunctional uterine bleeding Assessment/Plan: TSH was found to be normal and pelvic ultrasound was also normal. Patient will need further workup with obstetrics and gynecology. - Current Meds Current Meds: Current Medications Generic Name Dose Route Start Last Admin Trade Name Freq PRN Reason Stop Dose Admin Acetaminophen 650 mg 08/01/18 05:19 08/03/18 03:26 Tylenol PO 650 mg Q4HR PRN Administration Pain 1 to 4 Azithromycin 500 mg 08/02/18 09:00 08/02/18 08:20 Zithromax PO 500 mg DAILY BROCK Administration Enoxaparin Sodium 40 mg 08/01/18 09:00 08/02/18 08:22 Lovenox SUBQ 40 mg DAILY BROCK Administration Ceftriaxone Sodium 2 gm/ 100 mls @ 200 mls/hr 08/01/18 13:00 08/02/18 09:21 Sodium Chloride IV Infused DAILY [facility] Infusion Insulin Aspart 1 - 9 unit 08/02/18 12:30 08/02/18 21:01 Novolog SUBQ 7 unit 0800,1200,1700,2100 BROCK Administration Protocol Levalbuterol HCl 1.25 mg 08/02/18 10:12 08/02/18 20:16 Xopenex INH 1.25 mg Q4H PRN Administration Shortness of Air/Wheezing Nicotine 1 patch 08/01/18 15:50 08/02/18 08:28 Nicoderm TOP 1 patch DAILY BROCK Administration Ondansetron HCl 4 mg 08/01/18 05:19 08/03/18 03:26 Zofran Odt TL 4 mg Q6HR PRN Administration Nausea / Vomiting Oxycodone HCl 5 mg 08/01/18 05:19 08/02/18 05:06 Roxicodone PO 5 mg Q4HR PRN Administration Pain 5 to 7 Polyethylene Glycol 17 gm 08/01/18 09:00 08/02/18 08:29 Miralax PO Not Given DAILY BROCK Sodium Chloride 10 ml 08/01/18 05:19 08/02/18 21:00 Normal Saline Flush 0.9% IVP 10 ml PRN PRN Administration NEEDED PER PROVIDER ORDERS Sodium Chloride 10 ml 08/01/18 09:00 08/03/18 02:02 Normal Saline Flush 0.9% IVP Not Given 0100,0900,1700 BROCK Throat Lozenges 1 lozenge 08/02/18 05:07 08/02/18 14:21 Cepacol MM 1 lozenge Q2HR PRN Administration Mouth Sore Pain - Lab Result Lab results reviewed: Yes Fish Bone Diagrams: 08/03/18 05:30 08/03/18 05:30 - Diagnostic Imaging Results Diagnostic Imaging Results: Final report reviewed - Additional Planning Condition/Complexity: Improved My Orders: My Active Orders 08/02/18 09:00 Azithromycin [Zithromax] 500 mg PO DAILY 08/02/18 10:12 Levalbuterol [Xopenex] 1.25 mg INH Q4H PRN 08/02/18 12:30 Insulin Aspart [NovoLOG] 1 - 9 unit SUBQ 0800,1200,1700,2100 08/03/18 08:00 predniSONE [Deltasone] 40 mg PO DAILYWM 08/03/18 09:00 Chest 1 View X-Ray [XR] DAILY Calcium Citrate 250 mg PO DAILY 08/04/18 05:00 CBC - COMP BLD CT W/AUTO DIFF [HEME] DAILYLAB CMP, RFLX TO IONIZED CA IF [CHEM] DAILYLAB MAGNESIUM [CHEM] DAILYLAB PHOSPHORUS [CHEM] DAILYLAB 08/05/18 05:00 CBC - COMP BLD CT W/AUTO DIFF [HEME] DAILYLAB CMP, RFLX TO IONIZED CA IF [CHEM] DAILYLAB MAGNESIUM [CHEM] DAILYLAB PHOSPHORUS [CHEM] DAILYLAB Plan Discussed with:: Patient Time Spent: 31-60 minutes Subjective - Subjective Patient Reports: Feeling Better, Cough (Improving), Shortness of Breath (Improved), Other (Wheezing this am needs a neb treatment. No fevers overnight. Overall feels better.) Nursing Reports: No Complaints Objective Vital Signs: Vital Signs - 24 hr 08/02/18 08/02/18 08/02/18 09:30 11:01 15:09 Temperature Heart Rate 114 H 110 H Heart Rate [ 105 H Brachial] Respiratory 20 20 Rate Blood Pressure [Left Brachial artery] Blood Pressure [Right Brachial artery] O2 Saturation 94 08/02/18 08/02/18 08/03/18 15:30 20:17 00:00 Temperature 36.5 C 36.4 C L Heart Rate 95 Heart Rate [ 111 H 93 Brachial] Respiratory 20 18 20 Rate Blood Pressure [Left Brachial artery] Blood Pressure 122/66 108/68 [Right Brachial artery] O2 Saturation 93 96 08/03/18 08:00 Temperature 36.3 C L Heart Rate Heart Rate [ 86 Brachial] Respiratory 18 Rate Blood Pressure 127/62 [Left Brachial artery] Blood Pressure [Right Brachial artery] O2 Saturation 95 Oxygen O2 Source Room air Oxygen Flow Rate 2 I&O (Last 24 Hrs): Intake and Output Totals x24h 08/01/18 08/02/18 08/03/18 23:59 23:59 23:59 Intake Total 3120 4131.750 1000 Output Total 3000 3150 750 Balance 120 981.750 250 General: Alert, Oriented x3, Cooperative, Mild distress (Respiratory) HEENT: Atraumatic, PERRLA, EOMI, Mucous membr. moist/pink Neck: Supple, No JVD, No thyromegaly, +2 carotid pulse wo bruit, No LAD Lymphatic: no adenopathy Neuro: Alert, Non Focal, CN 2-12 Grossly Intact, Oriented Times 3 Cardiovascular: Regular rate, Normal S1, Normal S2, No murmurs Respiratory: Chest non-tender, Wheezes (Diffuse, expiratory mostly in the upper lungs), Other (Decreased breath sounds in lower lungs) Abdomen: Normal bowel sounds, Soft, No tenderness, No hepatospenomegaly Extremities: No clubbing, No cyanosis, No edema, Normal pulses Skin: No rashes, No breakdown - Results Results: Laboratory Results WBC 15.1 x10^3/uL (4.8-10.8) H 08/03/18 05:30 RBC 4.10 10^6/uL (4.20-5.40) L 08/03/18 05:30 Hgb 12.4 g/dL (12.0-16.0) 08/03/18 05:30 Hct 37.2 % (37.0-47.0) 08/03/18 05:30 MCV 90.7 fL (81.0-99.0) 08/03/18 05:30 MCH 30.3 pg (27.0-31.0) 08/03/18 05:30 MCHC 33.4 g/dL (32.0-36.0) 08/03/18 05:30 RDW 14.5 % (12.0-15.0) 08/03/18 05:30 Plt Count 288 10^3/uL (130-450) 08/03/18 05:30 MPV 8.5 fL (7.9-10.8) 08/03/18 05:30 Neut # (Auto) 13.5 10^3/uL (1.5-6.6) H 08/03/18 05:30 Lymph # (Auto) 1.1 10^3/uL (1.5-3.5) L 08/03/18 05:30 [place] # (Auto) 0.5 10^3/uL (0.0-1.0) 08/03/18 05:30 Eos # (Auto) 0.0 10^3/uL (0.0-0.7) 08/03/18 05:30 Baso # (Auto) 0.0 10^3/uL (0.0-0.1) 08/03/18 05:30 Absolute Nucleated RBC 0.00 x10^3/uL 08/03/18 05:30 Nucleated RBC % 0.0 /100WBC 08/03/18 05:30 VBG pH 7.361 (7.31-7.41) 08/03/18 05:30 Ionized Calcium 1.07 mmol/L (1.15-1.33) L 08/03/18 05:30 Sodium 140 mmol/L (135-145) 08/03/18 05:30 Potassium 4.2 mmol/L (3.5-5.0) 08/03/18 05:30 Chloride 107 mmol/L (101-111) 08/03/18 05:30 Carbon Dioxide 26 mmol/L (21-32) 08/03/18 05:30 Anion Gap 7.0 (6-13) 08/03/18 05:30 BUN 14 mg/dL (6-20) 08/03/18 05:30 Creatinine 0.6 mg/dL (0.4-1.0) 08/03/18 05:30 Estimated GFR (MDRD) 116 (>89) 08/03/18 05:30 Glucose 205 mg/dL (70-100) H 08/03/18 05:30 POC Whole Bld Glucose 165 mg/dL (70 - 100) H 08/03/18 07:34 Glycated Hemoglobin 8.0 % (4.6-6.2) H 08/01/18 08:21 Estim Average Glucose 183 (70-100) H 08/01/18 08:21 Lactic Acid 1.6 mmol/L (0.5-2.2) 08/01/18 17:15 Calcium 8.1 mg/dL (8.5-10.3) L 08/03/18 05:30 Ionized Calcium YES 08/03/18 05:30 Phosphorus 3.8 mg/dL (2.5-4.6) 08/03/18 05:30 Magnesium 2.3 mg/dL (1.7-2.8) 08/03/18 05:30 Total Bilirubin 0.3 mg/dL (0.2-1.0) 08/03/18 05:30 AST 29 IU/L (10-42) 08/03/18 05:30 ALT 42 IU/L (10-60) 08/03/18 05:30 Alkaline Phosphatase 60 IU/L (42-121) 08/03/18 05:30 Total Protein 6.6 g/dL (6.7-8.2) L 08/03/18 05:30 Albumin 3.3 g/dL (3.2-5.5) 08/03/18 05:30 Globulin 3.3 g/dL (2.1-4.2) 08/03/18 05:30 Albumin/Globulin Ratio 1.0 (1.0-2.2) 08/03/18 05:30 TSH 0.81 uIU/mL (0.34-5.60) 08/01/18 05:00 ABX Reporting Has patient been on IV antibiotics over the past 48 hours?: Yes Current Medications - Current Medications Current Medications: Active Medications Generic Name Dose Route Start Last Admin Trade Name Freq PRN Reason Stop Dose Admin Acetaminophen 650 mg 08/01/18 05:19 08/03/18 03:26 Tylenol PO 650 mg Q4HR PRN Administration Pain 1 to 4 Azithromycin 500 mg 08/02/18 09:00 08/02/18 08:20 Zithromax PO 500 mg DAILY BROCK Administration Calcium Citrate 250 mg 08/03/18 09:00 PO DAILY BROCK Enoxaparin Sodium 40 mg 08/01/18 09:00 08/02/18 08:22 Lovenox SUBQ 40 mg DAILY BROCK Administration Ceftriaxone Sodium 2 gm/ 100 mls @ 200 mls/hr 08/01/18 13:00 08/02/18 09:21 Sodium Chloride IV Infused DAILY [facility] Infusion Insulin Aspart 1 - 9 unit 08/02/18 12:30 08/02/18 21:01 Novolog SUBQ 7 unit 0800,1200,1700,2100 BROCK Administration Protocol Levalbuterol HCl 1.25 mg 08/02/18 10:12 08/02/18 20:16 Xopenex INH 1.25 mg Q4H PRN Administration Shortness of Air/Wheezing Nicotine 1 patch 08/01/18 15:50 08/02/18 08:28 Nicoderm TOP 1 patch DAILY BROCK Administration Ondansetron HCl 4 mg 08/01/18 05:19 Zofran Inj IVP Q6HR PRN Nausea / Vomiting Ondansetron HCl 4 mg 08/01/18 05:19 08/03/18 03:26 Zofran Odt TL 4 mg Q6HR PRN Administration Nausea / Vomiting Oxycodone HCl 5 mg 08/01/18 05:19 08/02/18 05:06 Roxicodone PO 5 mg Q4HR PRN Administration Pain 5 to 7 Polyethylene Glycol 17 gm 08/01/18 09:00 08/02/18 08:29 Miralax PO Not Given DAILY BROCK Prednisone 40 mg 08/03/18 08:00 Deltasone PO DAILYWM BROCK Sodium Chloride 10 ml 08/01/18 05:19 08/02/18 21:00 Normal Saline Flush 0.9% IVP 10 ml PRN PRN Administration NEEDED PER PROVIDER ORDERS Sodium Chloride 10 ml 08/01/18 09:00 08/03/18 02:02 Normal Saline Flush 0.9% IVP Not Given 0100,0900,1700 [facility] Throat Lozenges 1 lozenge 08/02/18 05:07 08/02/18 14:21 Cepacol MM 1 lozenge Q2HR PRN Administration Mouth Sore Pain No Known Home Medications 08/01/18
[2018-08-03] MEDS: INSULIN ASPART 300 UNIT/3 ML PEN SUBQ SCH ×4 (09:08→21:07)
[2018-08-03] MEDS: cefTRIAXone 2 GM in SODIUM CHLORIDE 0.9% MINIBAG 100 ML IV SCH (09:09)
[2018-08-03] MEDS: AZITHROMYCIN 250 MG TABLET PO SCH (09:09)
[2018-08-03] MEDS: CALCIUM CITRATE 250 MG TABLET PO SCH (09:09)
[2018-08-03] MEDS: predniSONE 20 MG TABLET PO SCH (09:09)
[2018-08-03] MEDS: ENOXAPARIN 40 MG/0.4 ML SYRINGE SUBQ SCH (09:10)
[2018-08-03] MEDS: NICOTINE 21 MG PATCH TOP SCH (09:10)
[2018-08-03] MEDS: POLYETHYLENE GLYCOL 3350 17 GM PACKET PO SCH (09:11)
--- NOTE | 2018-08-03 09:25 | XRAY Report ---
Reason: Cough, shortness of breath Procedure Date: 08/03/2018 Accession Number: [id number] / [id number] Procedure: XR - Chest 1 View X-Ray CPT Code: 33302 FULL RESULT: EXAM: CHEST RADIOGRAPHY EXAM DATE: 08/03/2018 09:04 AM. CLINICAL HISTORY: Cough, shortness of breath. COMPARISON: CHEST 1 VIEW 08/02/2018 8:57 AM. TECHNIQUE: 1 view. FINDINGS: Lungs/Pleura: Mild bilateral diffuse hazy and reticular opacities as before; aeration has not significantly changed compared to prior. No new focal airspace opacity. No pneumothorax or pleural effusion. Mediastinum: Within exam limitations, the cardiomediastinal contour is normal. Other: None. IMPRESSION: No significant change from prior. RADIA
[2018-08-03] MEDS: LEVALBUTEROL 1.25 MG/3 ML NEB INH PRN ×2 (11:14→15:58)
[2018-08-03] MEDS: guaiFENesin 600 MG TABLET PO SCH ×2 (13:06→21:03)
[2018-08-04] MEDS: SODIUM CHLORIDE FLUSH 0.9% 10 ML SYRINGE IVP SCH ×4 (00:57→23:46)
[2018-08-04] MEDS: ONDANSETRON ODT 4 MG TABLET TL PRN (04:09)
[2018-08-04 05:31] LABS: BASOPHILS % (AUTO) 0.6 %; EOSINOPHILS % (AUTO) 0.1 %; HGB - HEMOGLOBIN 12.4 g/dL (12.0-16.0); LYMPHOCYTES % (AUTO) 23.1 %; MEAN CORPUSCULAR HEMOGLOBIN 29.8 pg (27.0-31.0); MEAN CORPUSCULAR VOLUME 90.6 fL (81.0-99.0); MEAN PLATELET VOLUME 8.3 fL (7.9-10.8); NEUTROPHILS % (AUTO) 70.2 %; PLT - PLATELET COUNT 278 10^3/uL (130-450); RED BLOOD COUNT 4.16 10^6/uL (4.20-5.40); RED CELL DISTRIBUTION WIDTH 14.7 % (12.0-15.0); WHITE BLOOD COUNT 11.7 x10^3/uL (4.8-10.8)
[2018-08-04 05:44] LABS: ALBUMIN 3.2 g/dL (3.2-5.5); ALKALINE PHOSPHATASE 59 IU/L (42-121); ALT ALANINE AMINOTRANSFERASE 74 IU/L (10-60); AST ASPARTATE AMINOTRANSFERASE 38 IU/L (10-42); BILIRUBIN,TOTAL 0.3 mg/dL (0.2-1.0); BUN - BLOOD UREA NITROGEN 18 mg/dL (6-20); CALCIUM 8.1 mg/dL (8.5-10.3); CARBON DIOXIDE - CO2 28 mmol/L (21-32); CHLORIDE 103 mmol/L (101-111); CREATININE 0.6 mg/dL (0.4-1.0); GFR - MDRD 116 (>89); GLUCOSE 140 mg/dL (70-100); MAGNESIUM 2.3 mg/dL (1.7-2.8); SODIUM 139 mmol/L (135-145); TOTAL PROTEIN 6.3 g/dL (6.7-8.2)
[2018-08-04 05:58] LABS: VBG PH 7.378 (7.31-7.41)
[2018-08-04 06:39] LABS: ABNORMAL LYMPHS % (MANUAL) 0 %; BAND NEUTROPHILS % (MANUAL) 0 %
[2018-08-04 06:42] LABS: EOSINOPHILS # (MANUAL) 0.1 10^3/uL (0-0.7); LYMPHOCYTES # (MANUAL) 2.9 10^3/uL (1.5-3.5); LYMPHOCYTES % (MANUAL) 25 %; METAMYELOCYTES % (MANUAL) 2 %; MONOCYTES # (MANUAL) 0.8 10^3/uL (0.0-1.0); NEUTROPHILS # (MANUAL) 7.6 10^3/uL (1.5-6.6); NEUTROPHILS % (MANUAL) 65 %; PLATELET ESTIMATE, MANUAL NORMAL (130-450,000) (NORMAL); PLATELET MORPHOLOGY NORMAL APPEARANCE (NORMAL); RBC MORPHOLOGY (MULTIPLE) NORMAL APPEARANCE (NORMAL)
[2018-08-04 06:43] LABS: DIFFERENTIAL COMMENT MANUAL DIFFERENTIAL
[2018-08-04] MEDS: INSULIN ASPART 300 UNIT/3 ML PEN SUBQ SCH ×4 (07:48→21:36)
[2018-08-04] MEDS: predniSONE 20 MG TABLET PO SCH (07:58)
[2018-08-04] MEDS: NICOTINE 21 MG PATCH TOP SCH (08:29)
[2018-08-04] MEDS: ENOXAPARIN 40 MG/0.4 ML SYRINGE SUBQ SCH (08:31)
[2018-08-04] MEDS: cefTRIAXone 2 GM in SODIUM CHLORIDE 0.9% MINIBAG 100 ML IV SCH (08:31)
[2018-08-04] MEDS: CALCIUM CITRATE 250 MG TABLET PO SCH (08:32)
[2018-08-04] MEDS: AZITHROMYCIN 250 MG TABLET PO SCH (08:32)
[2018-08-04] MEDS: guaiFENesin 600 MG TABLET PO SCH ×2 (08:32→20:11)
[2018-08-04] MEDS: POLYETHYLENE GLYCOL 3350 17 GM PACKET PO SCH (08:33)
--- NOTE | 2018-08-04 16:51 | PROVIDER PROGRESS NOTE ---
Assessment/Plan - Problem List (1) Atypical pneumonia Assessment/Plan: Ground glassappearance was seen on CXR. Pt remains on antibiotics, nebs and steroids. She will need outpt Pulmonary management. Her has secured a new PCP for her, as of today, she stated. (2) Asthma with COPD with exacerbation Assessment/Plan: As in #1. Pt will not need supplemental oxygen at [facility]. Will start PT eval before [facility]. (3) Diarrhea Assessment/Plan: Most likely due to new antibiotics. Will check for C.diff. If persists, she will need management with anti-diarrheal agents amd or treatment for psudomembranous colitis. (4) Hematuria Assessment/Plan: Will obtain a urinalysis and culture if indicated. This could also be vaginal bleeding, per patient, but she does not have regular menses, Will monitor and she may need a TECHNICAL ACCOUNT MANAGER consult. Continue to monitor H/H with daily CBC. (5) Diabetes Qualifiers: Diabetes mellitus type: type 2 Diabetes mellitus correction insulin use: without correction use Diabetes mellitus complication status: with hyperglycemia Qualified Code(s): E11.65 - Type 2 diabetes mellitus with hyperglycemia Assessment/Plan: The patient is eager to learn more about her diet for DM. She is requesting an afternoon snack. Will order. - Current Meds Current Meds: Current Medications Generic Name Dose Route Start Last Admin Trade Name Freq PRN Reason Stop Dose Admin Acetaminophen 650 mg 08/01/18 05:19 08/03/18 03:26 Tylenol PO 650 mg Q4HR PRN Administration Pain 1 to 4 Azithromycin 500 mg 08/02/18 09:00 08/04/18 08:32 Zithromax PO 500 mg DAILY BROCK Administration Calcium Citrate 250 mg 08/03/18 09:00 08/04/18 08:32 PO 250 mg DAILY BROCK Administration Enoxaparin Sodium 40 mg 08/01/18 09:00 08/04/18 08:31 Lovenox SUBQ 40 mg DAILY BROCK Administration Guaifenesin 600 mg 08/03/18 12:00 08/04/18 08:32 Mucinex PO 600 mg BID BROCK Administration Ceftriaxone Sodium 2 gm/ 100 mls @ 200 mls/hr 08/01/18 13:00 08/04/18 09:01 Sodium Chloride IV Infused DAILY BROCK Infusion Insulin Aspart 2 - 10 unit 08/03/18 21:00 08/04/18 12:03 Novolog SUBQ 2 unit 0800,1200,1700,2100 BROCK Administration Protocol Levalbuterol HCl 1.25 mg 08/02/18 10:12 08/03/18 15:58 Xopenex INH 1.25 mg Q4H PRN Administration Shortness of Air/Wheezing Nicotine 1 patch 08/01/18 15:50 08/04/18 08:29 Nicoderm TOP 1 patch DAILY BROCK Administration Ondansetron HCl 4 mg 08/01/18 05:19 08/04/18 04:09 Zofran Odt TL 4 mg Q6HR PRN Administration Nausea / Vomiting Oxycodone HCl 5 mg 08/01/18 05:19 08/02/18 05:06 Roxicodone PO 5 mg Q4HR PRN Administration Pain 5 to 7 Polyethylene Glycol 17 gm 08/01/18 09:00 08/04/18 08:33 Miralax PO Not Given DAILY BROCK Prednisone 40 mg 08/03/18 08:00 08/04/18 07:58 Deltasone PO 40 mg DAILYWM BROCK Administration Sodium Chloride 10 ml 08/01/18 05:19 08/02/18 21:00 Normal Saline Flush 0.9% IVP 10 ml PRN PRN Administration NEEDED PER PROVIDER ORDERS Sodium Chloride 10 ml 08/01/18 09:00 08/04/18 08:31 Normal Saline Flush 0.9% IVP 10 ml 0100,0900,1700 BROCK Administration Throat Lozenges 1 lozenge 08/02/18 05:07 08/02/18 14:21 Cepacol MM 1 lozenge Q2HR PRN Administration Mouth Sore Pain - Lab Result Fish Bone Diagrams: 08/04/18 05:06 08/04/18 05:06 - Additional Planning My Orders: My Active Orders 08/04/18 C. DIFF BY PCR [RAPID] Urgent Urinalysis w/ Micro, Reflex Cult If [UA w/ MICROSCOPIC, CULT IF] [URIN] Routine Evaluate and Treat PT [PT] Routine 08/04/18 13:30 Oxygen Desat. Study w/Exercise [RC] .ONCE Subjective - Subjective Patient Reports: Feeling Better, Diarrhea, Shortness of Breath, Other (Pt says this present inhaler is better than the last one. She started to have diarrhea today with a foul small. She was "scared to walk in hallway" with RT for satur ation check, since she has not yet been OOB to walk, only to bedside commode, since admission.m Agter the walk, she was incontinent of urine which was blood tinged.) Objective Vital Signs: Vital Signs - 24 hr 08/03/18 08/04/18 08/04/18 20:25 00:00 07:48 Temperature 36.6 C 36.4 C L Heart Rate 84 Heart Rate [ 83 84 Brachial] Respiratory 16 18 20 Rate Blood Pressure 114/72 113/64 [Right Brachial artery] O2 Saturation 95 95 08/04/18 08/04/18 08/04/18 09:00 14:00 15:48 Temperature 36.6 C Heart Rate 76 111 H Heart Rate [ 79 Brachial] Respiratory 16 18 Rate Blood Pressure 129/77 [Right Brachial artery] O2 Saturation 97 Oxygen O2 Source Room air Oxygen Flow Rate 2 I&O (Last 24 Hrs): Intake and Output Totals x24h 08/02/18 08/03/18 08/04/18 23:59 23:59 23:59 Intake Total 4131.750 3550 1290 Output Total 3150 1550 200 Balance 172.070 8058 1090 General: Alert, Oriented x3 HEENT: Other (Appears Cushingoid.) Neck: Supple, No JVD Neuro: Non Focal Cardiovascular: Regular rate, No murmurs Respiratory: No respiratory distress, Breath sounds nml, Other (Prolonged expiratory phase withput wheezing.) Abdomen: Other (Obese, soft, non-tender.) Extremities: No edema - Results Results: Laboratory Results WBC 11.7 x10^3/uL (4.8-10.8) H 08/04/18 05:06 RBC 4.16 10^6/uL (4.20-5.40) L 08/04/18 05:06 Hgb 12.4 g/dL (12.0-16.0) 08/04/18 05:06 Hct 37.7 % (37.0-47.0) 08/04/18 05:06 MCV 90.6 fL (81.0-99.0) 08/04/18 05:06 MCH 29.8 pg (27.0-31.0) 08/04/18 05:06 MCHC 33.0 g/dL (32.0-36.0) 08/04/18 05:06 RDW 14.7 % (12.0-15.0) 08/04/18 05:06 Plt Count 278 10^3/uL (130-450) 08/04/18 05:06 MPV 8.3 fL (7.9-10.8) 08/04/18 05:06 Neut # (Auto) Not Reportable 08/04/18 05:06 Lymph # (Auto) Not Reportable 08/04/18 05:06 [place] # (Auto) Not Reportable 08/04/18 05:06 Eos # (Auto) Not Reportable 08/04/18 05:06 Baso # (Auto) Not Reportable 08/04/18 05:06 Absolute Nucleated RBC Not Reportable 08/04/18 05:06 Total Counted 100 08/04/18 05:06 Band Neuts % (Manual) 0 % (0-10) 08/04/18 05:06 Abnorm Lymph % (Manual) 0 % 08/04/18 05:06 Metamyelocytes % 2 % (-0) H 08/04/18 05:06 Nucleated RBC % Not Reportable 08/04/18 05:06 Neutrophils # (Manual) 7.6 10^3/uL (1.5-6.6) H 08/04/18 05:06 Lymphocytes # (Manual) 2.9 10^3/uL (1.5-3.5) 08/04/18 05:06 Monocytes # (Manual) 0.8 10^3/uL (0.0-1.0) 08/04/18 05:06 Eosinophils # (Manual) 0.1 10^3/uL (0-0.7) 08/04/18 05:06 Basophils # (Manual) 0.0 10^3/uL (0-0.1) 08/04/18 05:06 Differential Comment MANUAL DIFFERENTIAL 08/04/18 05:06 Platelet Estimate NORMAL (130-450,000) (NORMAL) 08/04/18 05:06 Platelet Morphology NORMAL APPEARANCE (NORMAL) 08/04/18 05:06 RBC Morph Micro Appear NORMAL APPEARANCE (NORMAL) 08/04/18 05:06 VBG pH 7.378 (7.31-7.41) 08/04/18 05:06 Ionized Calcium 1.09 mmol/L (1.15-1.33) L 08/04/18 05:06 Sodium 139 mmol/L (135-145) 08/04/18 05:06 Potassium 3.9 mmol/L (3.5-5.0) 08/04/18 05:06 Chloride 103 mmol/L (101-111) 08/04/18 05:06 Carbon Dioxide 28 mmol/L (21-32) 08/04/18 05:06 Anion Gap 8.0 (6-13) 08/04/18 05:06 BUN 18 mg/dL (6-20) 08/04/18 05:06 Creatinine 0.6 mg/dL (0.4-1.0) 08/04/18 05:06 Estimated GFR (MDRD) 116 (>89) 08/04/18 05:06 Glucose 140 mg/dL (70-100) H 08/04/18 05:06 POC Whole Bld Glucose 158 mg/dL (70 - 100) H 08/04/18 16:33 Glycated Hemoglobin 8.0 % (4.6-6.2) H 08/01/18 08:21 Estim Average Glucose 183 (70-100) H 08/01/18 08:21 Lactic Acid 1.6 mmol/L (0.5-2.2) 08/01/18 17:15 Calcium 8.1 mg/dL (8.5-10.3) L 08/04/18 05:06 Ionized Calcium YES 08/04/18 05:06 Phosphorus 4.0 mg/dL (2.5-4.6) 08/04/18 05:06 Magnesium 2.3 mg/dL (1.7-2.8) 08/04/18 05:06 Total Bilirubin 0.3 mg/dL (0.2-1.0) 08/04/18 05:06 AST 38 IU/L (10-42) 08/04/18 05:06 ALT 74 IU/L (10-60) H 08/04/18 05:06 Alkaline Phosphatase 59 IU/L (42-121) 08/04/18 05:06 Total Protein 6.3 g/dL (6.7-8.2) L 08/04/18 05:06 Albumin 3.2 g/dL (3.2-5.5) 08/04/18 05:06 Globulin 3.1 g/dL (2.1-4.2) 08/04/18 05:06 Albumin/Globulin Ratio 1.0 (1.0-2.2) 08/04/18 05:06 TSH 0.81 uIU/mL (0.34-5.60) 08/01/18 05:00 ABX Reporting Has patient been on IV antibiotics over the past 48 hours?: Yes
[2018-08-04 17:47] LABS: BILIRUBIN,URINE NEGATIVE (NEGATIVE); GLUCOSE, URINE (UA) NEGATIVE (NEGATIVE); KETONES,URINE (UA) NEGATIVE (NEGATIVE); LEUKOCYTE ESTERASE, URINE NEGATIVE (NEGATIVE); NITRITE,URINE NEGATIVE (NEGATIVE); OCCULT BLOOD,URINE MODERATE (NEGATIVE); PROTEIN,URINE NEGATIVE (NEGATIVE); UROBILINOGEN,URINE 0.2 (NORMAL) E.U./dL (NORMAL)
[2018-08-04 17:51] LABS: CLARITY,URINE CLEAR (CLEAR)
[2018-08-04 17:56] LABS: BACTERIA,URINE None Seen /HPF (None Seen); SQUAMOUS EPITHELIAL CELL,UR RARE Squamous (<= Few)
[2018-08-04] MEDS: ACETAMINOPHEN 325 MG TABLET PO PRN (20:11)
[2018-08-05 05:01] LABS: BASOPHILS % (AUTO) 0.4 %; EOSINOPHILS % (AUTO) 1.3 %; HGB - HEMOGLOBIN 13.7 g/dL (12.0-16.0); LYMPHOCYTES % (AUTO) 31.8 %; MEAN CORPUSCULAR HEMOGLOBIN 30.8 pg (27.0-31.0); MEAN CORPUSCULAR HGB CONC 34.6 g/dL (32.0-36.0); MEAN CORPUSCULAR VOLUME 89.1 fL (81.0-99.0); MEAN PLATELET VOLUME 8.4 fL (7.9-10.8); MONOCYTES % (AUTO) 5.1 %; NEUTROPHILS % (AUTO) 61.4 %; PLT - PLATELET COUNT 280 10^3/uL (130-450); RED BLOOD COUNT 4.45 10^6/uL (4.20-5.40); RED CELL DISTRIBUTION WIDTH 14.3 % (12.0-15.0); WHITE BLOOD COUNT 9.9 x10^3/uL (4.8-10.8)
[2018-08-05 05:04] LABS: ABNORMAL LYMPHS % (MANUAL) 0 %
[2018-08-05 05:12] LABS: ALBUMIN 3.1 g/dL (3.2-5.5); ALKALINE PHOSPHATASE 67 IU/L (42-121); ALT ALANINE AMINOTRANSFERASE 91 IU/L (10-60); AST ASPARTATE AMINOTRANSFERASE 54 IU/L (10-42); BILIRUBIN,TOTAL 0.5 mg/dL (0.2-1.0); BUN - BLOOD UREA NITROGEN 15 mg/dL (6-20); CARBON DIOXIDE - CO2 30 mmol/L (21-32); CHLORIDE 104 mmol/L (101-111); CREATININE 0.6 mg/dL (0.4-1.0); GFR - MDRD 116 (>89); GLUCOSE 120 mg/dL (70-100); MAGNESIUM 2.1 mg/dL (1.7-2.8); PHOSPHORUS 4.7 mg/dL (2.5-4.6); SODIUM 139 mmol/L (135-145); TOTAL PROTEIN 6.1 g/dL (6.7-8.2)
[2018-08-05 05:17] LABS: VBG PH 7.395 (7.31-7.41)
[2018-08-05 05:21] LABS: BAND NEUTROPHILS % (MANUAL) 4 %; DIFFERENTIAL COMMENT MANUAL DIFFERENTIAL; EOSINOPHILS # (MANUAL) 0.3 10^3/uL (0-0.7); LYMPHOCYTES # (MANUAL) 2.1 10^3/uL (1.5-3.5); LYMPHOCYTES % (MANUAL) 21 %; METAMYELOCYTES % (MANUAL) 1 %; MONOCYTES # (MANUAL) 0.3 10^3/uL (0.0-1.0); MYELOCYTES % (MANUAL) 1 %; NEUTROPHILS % (MANUAL) 67 %; PLATELET ESTIMATE, MANUAL NORMAL (130-450,000) (NORMAL); RBC MORPHOLOGY (MULTIPLE) NORMAL APPEARANCE (NORMAL)
[2018-08-05] MEDS: predniSONE 20 MG TABLET PO SCH (08:11)
[2018-08-05] MEDS: INSULIN ASPART 300 UNIT/3 ML PEN SUBQ SCH ×2 (08:13→12:07)
[2018-08-05] MEDS: NICOTINE 21 MG PATCH TOP SCH (08:20)
--- NOTE | 2018-08-05 09:10 | Discharge Plan ---
Discharge Plan Disposition: Home, Self Care Condition: Good Prescriptions: Albuterol Sulf [Ventolin Hfa Inhaler] 1 - 2 puffs INH Q4HR PRN #1 inhaler PRN Reason: Shortness Of Air/Wheezing Amox/Clav 875/125 [Augmentin] 1 each PO Q12H #6 tablet Azithromycin [Zithromax] 500 mg PO DAILY #4 tablet Fluticasone/Salmeterol [Advair 250-50 Diskus] 1 puffs IH BID #1 blst.w.dev guaiFENesin [Mucinex] 600 mg PO BID #10 tablet metFORMIN [Glucophage] 500 mg PO BIDWM #60 tablet Nicotine 21 mg Patch [Nicoderm] 1 patch TOP DAILY #30 patch predniSONE [Deltasone] 40 mg PO DAILYWM #5 tablet Diet: Diabetic Activity Restrictions: Activity as Tolerated Shower Restrictions: No Driving Restrictions: No Weight Bearing: Full Weight Instruction Topics: A1C, Diabetes Alcohol Consumption, Diabetes Vp Compliance Complications, Hyperglycemia, Hypoglycemia, Diabetes Resources, Blood Sugar Check, Insulin Injected, Insulin Types, Diabetes Healthy Meals, Diabetes Carbs, Blood Sugar Manage Exercise, Diabetes Inspect Feet, Prevent Guidelines Women 18 to 39 Additional Instructions or Follow Up instructions: You came to our emergency department complaining of coughing and shortness of breath. You were found to have wheezing on examination and were not improving initially with treatment in the emergency department. You were also requiring oxygen when you presented. Your CT scan of your chest showed a possible infection and reactive airway disease. You responded well to antibiotics and steroids and were able to be taken off of oxygen. Your breathing is now much improved and you will be able to be discharged home with steroid that you will take orally for 5 more days, antibiotics that you will take for a few more days, and albuterol inhaler that he will take as needed and a inhaled steroid inhaler that he will take once you have completed your oral steroids. He will take your inhaled steroid twice a day. I have also prescribed you Mucinex which should help with your congestion and cough. You have also been given a prescription for a nicotine patch as we discussed you are in the hospital you need to quit smoking and this may help assist you in doing so. While you were hospitalized were also found to have diabetes. I have given you a prescription for metformin which she will take twice a day with meals for your diabetes. You are also given diabetes education as far as diet and otherwise while you were here. He will follow-up with your primary care physician who will guide you on further treatment of your diabetes. I do advised that you try to lose weight and exercise as this may reverse your diabetes. I also recommend a referral to a account specialist to get another CT scan of your lungs and do some further testing to ensure you do not have any kind of chronic lung disease. Follow-Up Care: [facility] - Diabetes Ed No Smoking: If you smoke, Please STOP! Call for help. Follow-up with: KEHINDE LAWSON [Physician No Access] -
[2018-08-05] MEDS: cefTRIAXone 2 GM in SODIUM CHLORIDE 0.9% MINIBAG 100 ML IV SCH (09:13)
[2018-08-05] MEDS: CALCIUM CITRATE 250 MG TABLET PO SCH (09:13)
[2018-08-05] MEDS: AZITHROMYCIN 250 MG TABLET PO SCH (09:13)
[2018-08-05] MEDS: guaiFENesin 600 MG TABLET PO SCH (09:13)
[2018-08-05] MEDS: SODIUM CHLORIDE FLUSH 0.9% 10 ML SYRINGE IVP SCH (09:14)
[2018-08-05] MEDS: POLYETHYLENE GLYCOL 3350 17 GM PACKET PO SCH (09:14)
[2018-08-05] MEDS: ENOXAPARIN 40 MG/0.4 ML SYRINGE SUBQ SCH (09:18)
[2018-08-05 10:13] VITALS: BP 129/77
--- NOTE | 2018-08-05 11:22 | DISCHARGE SUMMARY ---
Discharge Summary Admit Date: 08/01/18 Discharge Date: 08/05/18 Discharging Provider: Killian Morales MD Primary Care Provider: Bulmaro Vega MD Code Status: Attempt Resuscitation Condition at Discharge: Good Discharge Disposition: 01 Home, Self Care - DIAGNOSES Admission Diagnoses: 1. Asthma with COPD with exacerbation 2. Tobacco abuse 3. Dysfunctional uterine bleeding. Discharge Diagnoses with Status of Each Condition: 1. Sepsis: Resolved 2. Acute respiratory failure with hypoxia: Resolved 3. Community-acquired pneumonia: Improving 4. Reactive airway disease: Improving 5. Diabetes mellitus type 2: Stable 6. Tobacco abuse: Stable 7. Dysfunctional uterine bleeding: Stable - HPI History of Present Illness: She is a 33-year-old white female who moved from [place] after driving here a month ago. She started on [place] and went through [place], [place], [place], [place], [place] and then [facility]. She is always had a little bit of problem with wheezing and coughing since the age of about 21-22. She smokes 1 pack per day and started smoking at the age of 14. She moved here [place], [place] she was proposed to by her . She is originally from [place], [place]. 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 He still flies back between [facility] and [place] to work in the oil rendon there. No one else is sick in her family. About a week ago she thought she developed a cold. Cough, sneezing, runny nose, sore throat. It made her chest feel congested and she started wheezing and coughing even more. It has been nonstop. No fever, no chills. Appetite is been a little bit diminished. No phlegm production, no hemoptysis. She came to the emergency room on July 31,Yesterday. Was in the emergency room around 6 hours with nebulizers and a steroid dose. She was discharged home with albuterol, doxycycline. He felt that she should come to into the hospital. She wanted to go home. She now returns in the early hours of the today continuing to cough and wheeze. He has given her more nebulizers and Decadron. No response and he would like her for treatment - HOSPITAL COURSE Hospital Course: (1) Sepsis Assessment/Plan: The patient had sepsis on presentation with leukocytosis 15.6, elevated lactic acid of 3.1, tachycardia with heart rate in the 120s, tachypneic with respiratory rate in the mid to high 20s and hypoxia with O2 saturation of 89% on room air. It appears that the patient's sepsis was secondary to respiratory infection thought to be community-acquired or atypical pneumonia. Patient was given IV fluids with improvement in lactic acid and heart rate. Patient also treated with IV antibiotics ceftriaxone and azithromycin and she had significant improvement. Leukocytosis resolved. Resolved with treatment (2) Acute respiratory failure with hypoxia Assessment/Plan: The patient presented with acute respiratory failure with hypoxia. Patient's oxygen saturation dropped to below 90% on room air. Patient had to be placed on 2 L of oxygen. The patient's acute respiratory failure with hypoxia appears to be secondary to pneumonia and reactive airway disease. The patient's CT scan shows changes that are concerning for hypersensitivity pneumonitis or bron chiolitis. At this point patient will be treated with IV antibiotics, IV steroids and nebs. If the patient is not improving we will consider transferring her to high level of care for pulmonology consultation. If patient does improve the patient will still need to have follow-up with pulmonology as an outpatient. Weaned off O2 with treatment of pneumonia and reactive airway disease Resolved (3) CAP (community acquired pneumonia) Qualifiers: Laterality: unspecified laterality Qualified Code(s): J18.9 - Pneumonia, unspecified organism Assessment/Plan: The patient has diffuse bilateral hazy opacities. There is still concern for possible pneumonitis or bronchiolitis. Patient was treated for CAP and atypical pneumonia with IV ceftriaxone and azithromycin and improved. She was continued on PO augmentin and PO Azithro at discharge to complete 7 days of treatment She was much improved (4) Reactive airway disease Qualifiers: Asthma severity: moderate Asthma persistence: persistent Asthma complication type: with acute exacerbation Qualified Code(s): J45.41 - M oderate persistent asthma with (acute) exacerbation Assessment/Plan: The patient has a history of smoking but no history of asthma or COPD. The patient appears to have reactive airway disease likely due to ongoing infection or possibly due to hypersensitivity pneumonitis or bronchiolitis given findings on CT scan. Patient was treated with IV abx, nebs and steroids She improved and was weaned off O2 She was discharged on Albuterol, prednisone for 5 days and given Advair She will need follow up with her PCP and a referral for a rn lab for PFTs and a repeat CT chest She will need further work up for possible chronic lung disease She was also advised to quit smoking (5) Diabetes Qualifiers: Diabetes mellitus type: type 2 Diabetes mellitus trackwalker insulin use: without trackwalker use Diabetes mellitus complication status: with hyperglycemia Qualified Code(s): E11.65 - Type 2 diabetes mellitus with hyperglycemia Assessment/Plan: The patient had hyperglycemia on presentation and hemoglobin A1c is found to be elevated at 8.0. She has never been diagnosed with diabetes in the past and never had a hemoglobin A1c tested in the past. The patient is currently on steroids which could be inducing the hyperglycemia. While the patient was hospitalized she was placed on sliding scale insulin and a diabetic diet. BG was controlled She is being discharged on Metformin 500 mg BID with meals She was given diabetic teaching and will follow up with diabetic classes She will need to follow up with PCP for further diabetic supplies and monitoring She may do well with lifestyle changes over the next 6-12 months and could possibly be weaned off the metformin in the future (6) Tobacco abuse Assessment/Plan: Patient's been smoking 1 pack a day since she was 15 years old. She states that she continues to smoke at home. She understands the risk involved with continued smoking. She was placed on a nicotine patch while she was hospitalized. She does seem to be committed to quitting. She was counseled. She was discharged home with nicotine patches and is committed to quitting smoking. (7) Dysfunctional uterine bleeding Assessment/Plan: TSH was found to be normal and pelvic ultrasound was also normal. Patient will need further workup with obstetrics and gynecology. - ALLERGIES Allergies/Adverse Reactions: Allergies Allergy/AdvReac Type Severity Reaction Status Date / Time No Known Drug Allergies Allergy Verified 07/31/18 20:30 - MEDICATIONS Home Medications: Ambulatory Orders Medication Instructions Recorded Confirmed Albuterol Sulf [Ventolin Hfa 1 - 2 puffs INH Q4HR PRN #1 inhaler 08/05/18 Inhaler] Amox/Clav 875/125 [Augmentin] 1 each PO Q12H #6 tablet 08/05/18 Azithromycin [Zithromax] 500 mg PO DAILY #4 tablet 08/05/18 Fluticasone/Salmeterol [Advair 1 puffs IH BID #1 blst.w.dev 08/05/18 250-50 Diskus] Nicotine 21 mg Patch [Nicoderm] 1 patch TOP DAILY #30 patch 08/05/18 guaiFENesin [Mucinex] 600 mg PO BID #10 tablet 08/05/18 metFORMIN [Glucophage] 500 mg PO BIDWM #60 tablet 08/05/18 predniSONE [Deltasone] 40 mg PO DAILYWM #5 tablet 08/05/18 - PHYSICAL EXAM AT DISCHARGE General Appearance: positive: No acute distress, Alert, Other (Obese) Eyes Bilateral: positive: Normal inspection, PERRL, EOMI, No lid inflammation, Conjunctivae nml, No scleral icterus ENT: positive: ENT inspection nml, Pharynx nml, No signs of dehydration. negative: Purulent nasal drainage, Pharyngeal erythema, Oral lesions Neck: positive: Nml inspection, Thyroid nml, No JVD, Trachea midline. negative: Thyromegaly, Lymphadenopathy (R), Lymphadenopathy (L), Carotid bruit, Tracheal deviation Respiratory: positive: Chest non-tender, No respiratory distress, Wheezes (scattered, mild), Other (decreased breath sounds) Cardiovascular: positive: Regular rate & rhythm, No murmur, No gallop Peripheral Pulses: positive: 2+ Abdomen: positive: Non-tender, No organomegaly, Nml bowel sounds, No distention Back: positive: Nml inspection. negative: CVA tenderness (R), CVA tenderness (L) Skin: positive: Color nml, No rash, Warm. negative: Cyanosis, Diaphoresis, Pallor Extremities: positive: Non-tender, Full ROM, Nml appearance, No pedal edema Neurologic/Psychiatric: positive: Oriented x3, CN's nml (2-12), Motor nml, Sensation nml, Mood/affect nml - LABS Result Diagrams: 08/05/18 04:35 08/05/18 04:35 Other Lab Results: Laboratory Results WBC 9.9 x10^3/uL (4.8-10.8) 08/05/18 04:35 RBC 4.45 10^6/uL (4.20-5.40) 08/05/18 04:35 Hgb 13.7 g/dL (12.0-16.0) 08/05/18 04:35 Hct 39.6 % (37.0-47.0) 08/05/18 04:35 MCV 89.1 fL (81.0-99.0) 08/05/18 04:35 MCH 30.8 pg (27.0-31.0) 08/05/18 04:35 MCHC 34.6 g/dL (32.0-36.0) 08/05/18 04:35 RDW 14.3 % (12.0-15.0) 08/05/18 04:35 Plt Count 280 10^3/uL (130-450) 08/05/18 04:35 MPV 8.4 fL (7.9-10.8) 08/05/18 04:35 Neut # (Auto) Not Reportable 08/05/18 04:35 Lymph # (Auto) Not Reportable 08/05/18 04:35 [place] # (Auto) Not Reportable 08/05/18 04:35 Eos # (Auto) Not Reportable 08/05/18 04:35 Baso # (Auto) Not Reportable 08/05/18 04:35 Absolute Nucleated RBC Not Reportable 08/05/18 04:35 Total Counted 100 08/05/18 04:35 Band Neuts % (Manual) 4 % (0-10) 08/05/18 04:35 Abnorm Lymph % (Manual) 0 % 08/05/18 04:35 Metamyelocytes % 1 % (-0) H 08/05/18 04:35 Myelocytes % 1 % (-0) H 08/05/18 04:35 Nucleated RBC % Not Reportable 08/05/18 04:35 Neutrophils # (Manual) 7.0 10^3/uL (1.5-6.6) H 08/05/18 04:35 Lymphocytes # (Manual) 2.1 10^3/uL (1.5-3.5) 08/05/18 04:35 Monocytes # (Manual) 0.3 10^3/uL (0.0-1.0) 08/05/18 04:35 Eosinophils # (Manual) 0.3 10^3/uL (0-0.7) 08/05/18 04:35 Basophils # (Manual) 0.0 10^3/uL (0-0.1) 08/05/18 04:35 Nucleated RBCs 2 % 08/05/18 04:35 Differential Comment MANUAL DIFFERENTIAL 08/05/18 04:35 Platelet Estimate NORMAL (130-450,000) (NORMAL) 08/05/18 04:35 Platelet Morphology NORMAL APPEARANCE (NORMAL) 08/04/18 05:06 RBC Morph Micro Appear NORMAL APPEARANCE (NORMAL) 08/05/18 04:35 VBG pH 7.395 (7.31-7.41) 08/05/18 04:35 Ionized Calcium 1.06 mmol/L (1.15-1.33) L 08/05/18 04:35 Sodium 139 mmol/L (135-145) 08/05/18 04:35 Potassium 3.7 mmol/L (3.5-5.0) 08/05/18 04:35 Chloride 104 mmol/L (101-111) 08/05/18 04:35 Carbon Dioxide 30 mmol/L (21-32) 08/05/18 04:35 Anion Gap 5.0 (6-13) L 08/05/18 04:35 BUN 15 mg/dL (6-20) 08/05/18 04:35 Creatinine 0.6 mg/dL (0.4-1.0) 08/05/18 04:35 Estimated GFR (MDRD) 116 (>89) 08/05/18 04:35 Glucose 120 mg/dL (70-100) H 08/05/18 04:35 POC Whole Bld Glucose 101 mg/dL (70 - 100) H 08/05/18 07:24 Glycated Hemoglobin 8.0 % (4.6-6.2) H 08/01/18 08:21 Estim Average Glucose 183 (70-100) H 08/01/18 08:21 Lactic Acid 1.6 mmol/L (0.5-2.2) 08/01/18 17:15 Calcium 8.0 mg/dL (8.5-10.3) L 08/05/18 04:35 Ionized Calcium YES 08/05/18 04:35 Phosphorus 4.7 mg/dL (2.5-4.6) H 08/05/18 04:35 Magnesium 2.1 mg/dL (1.7-2.8) 08/05/18 04:35 Total Bilirubin 0.5 mg/dL (0.2-1.0) 08/05/18 04:35 AST 54 IU/L (10-42) H 08/05/18 04:35 ALT 91 IU/L (10-60) H 08/05/18 04:35 Alkaline Phosphatase 67 IU/L (42-121) 08/05/18 04:35 Total Protein 6.1 g/dL (6.7-8.2) L 08/05/18 04:35 Albumin 3.1 g/dL (3.2-5.5) L 08/05/18 04:35 Globulin 3.0 g/dL (2.1-4.2) 08/05/18 04:35 Albumin/Globulin Ratio 1.0 (1.0-2.2) 08/05/18 04:35 TSH 0.81 uIU/mL (0.34-5.60) 08/01/18 05:00 Urine Color YELLOW 08/04/18 17:30 Urine Clarity CLEAR (CLEAR) 08/04/18 17:30 Urine pH 6.0 PH (5.0-7.5) 08/04/18 17:30 Ur Specific Vanduser 1.015 (1.002-1.030) 08/04/18 17:30 Urine Protein NEGATIVE mg/dL (NEGATIVE) 08/04/18 17:30 Urine Glucose (UA) NEGATIVE mg/dL (NEGATIVE) 08/04/18 17:30 Urine Ketones NEGATIVE mg/dL (NEGATIVE) 08/04/18 17:30 Urine Occult Blood MODERATE (NEGATIVE) H 08/04/18 17:30 Urine Nitrite NEGATIVE (NEGATIVE) 08/04/18 17:30 Urine Bilirubin NEGATIVE (NEGATIVE) 08/04/18 17:30 Urine Urobilinogen 0.2 (NORMAL) E.U./dL (NORMAL) 08/04/18 17:30 Ur Leukocyte Esterase NEGATIVE (NEGATIVE) 08/04/18 17:30 Urine RBC 11-25 /HPF (0-5) H 08/04/18 17:30 Urine WBC 0-3 /HPF (0-5) 08/04/18 17:30 Ur Squamous Epith Cells RARE Squamous (<= Few) 08/04/18 17:30 Urine Bacteria None Seen /HPF (None Seen) 08/04/18 17:30 Urine Culture Comments NOT INDICATED 08/04/18 17:30 - DIAGNOSTIC IMAGING Diagnostic Imaging Results: Final report reviewed Diagnostic Imaging Results Comments: CTA of chest: FINDINGS: Pulmonary Arteries: There is adequate opacification up to the proximal segmental arteries. No evidence for main, lobar, or proximal segmental pulmonary emboli. Distal segmental and subsegmental vessels are difficult to assess due to suboptimal opacification. Lungs and Pleura: There is moderate patchy multifocal lobular distribution groundglass opacity with mild upper lobe predominance. No significant effusion. No definite pneumothorax. Central Airways: Visualized central airways are without suspicious filling defects. Chest Wall: No significant abnormality. Thyroid: No significant abnormality. Mediastinum: There is a nonspecific pathologically enlarged right-sided suprahilar lymph node measuring 3.0 x 1.9 cm (image 49 series 4). Increased number of small right paratracheal as well as mediastinal lymph nodes are present. These are nonspecific. Heart: Normal in size. No significant pericardial effusion. Aorta: Normal caliber. Upper Abdomen: Suspect moderate to severe hepatic steatosis. Bones: No suspicious bony lesions evident. IMPRESSION: 1. No evidence of pulmonary embolism. 2. There is moderate severity mosaic attenuation within the lung parenchyma. I suspect that this is related to small airways disease. Differential diagnosis includes hypersensitivity pneumonitis or constrictive bronchiolitis. Other nonspecific pneumonitis is in the differential diagnosis. 3. No significant pulmonary consolidation. No effusion. Chest Xray: FINDINGS: Lungs/Pleura: No focal opacities evident. No pleural effusion. No pneumothorax. Normal volumes. Mediastinum: Heart and mediastinal contours are unremarkable. Other: No bony abnormality identified. IMPRESSION: Normal 2-view chest radiography. CT sinuses Impression: 1. Mucosal thickening is seen throughout the maxillary, ethmoid and sphenoid s inuses. However no air-fluid level is demonstrated to confirm the presence of active infection. 2. No obvious obstructing lesion is demonstrated. Pelvic/transvaginal ultrasound Impression: Normal pelvic ultrasound Chest x-ray 08/02/2018 Impression: Diffuse bilateral hazy opacities appear increased compared to prior. This finding may reflect pulmonary edema or an atypical inflammatory process. Chest x-ray 08/03/2018 Impression: No significant change from prior. - FOLLOW UP Follow Up: Patient was given a new primary care physician Dr. Vega and she will follow-up with him within the next 1-2 weeks. She will need to follow-up for her new diagnosis of diabetes for which she has been started on metformin. She will also need to follow-up after she is completed treatment for community acquired pneumonia and COPD exacerbation. She needs further workup for possible interstitial lung disease including a referral to pulmonology. She was advised to quit smoking and also to exercise and lose weight. - TIME SPENT Time Spent in Discharge (Minutes): 45
== END 2018-08-05 12:49 | disposition home or self-care (01) | DRG 871 ==
LOC: ED 04:37 → MS2 05:19 → OBSVTOIN 12:26
PROVIDERS: ADMIT Specialist; ATTEND Internal Medicine
DX: A41.9 Sepsis, unspecified organism (principal); J18.9 Pneumonia, unspecified organism; J96.01 Acute respiratory failure with hypoxia; J45.901 Unspecified asthma with (acute) exacerbation; F17.200 Nicotine dependence, unspecified, uncomplicated; E66.01 Morbid (severe) obesity due to excess calories; Z68.39 Body mass index [BMI] 39.0-39.9, adult; E11.65 Type 2 diabetes mellitus with hyperglycemia; N93.8 Other specified abnormal uterine and vaginal bleeding
CPT/HCPCS: 36415; 70486; 71045; 71046; 71275; 76830; 76856; 80048; 80053; 81001; 82330; 83036; 83605; 83735; 84100; 84443; 85025; 85379; 87086; 87493; 94640; 94761; 96361; 96365; 96372; 96375; 99284

== ENCOUNTER 2018-10-19 12:54 | Emergency (ER) | payer OTHER ==
[2018-10-19] MEDS ORDERED: BUFFERED LIDOCAINE 10 ML SYRINGE SUBQ STA (13:25)
--- NOTE | 2018-10-19 13:48 | ED Physician Documentation ---
PD HPI SKIN - Stated complaint Stated Complaint: LUMP ON LEGS - Chief complaint Chief Complaint: Wound - History obtained from History obtained from: Patient - History of Present Illness Timing - onset: How many weeks ago (1) Timing - duration: Weeks (1) Timing - details: Gradual onset, Still present Location: Abdomen Quality / character: Painful, Burning, Raised, Swelling. No: Draining Associated symptoms: No: Fever, Myalgias, Joint pain, Headache, Facial swelling, Dyspnea, Abd pain Similar symptoms before: Diagnosis (abscess) Recently seen: Not recently seen - Additional information Additional information: 33-year-old diabetic female has developed an area of redness and swelling with fluctuance on the lower abdominal wall above the inguinal crease and she has had an abscess here previously and has had this drained. She has a lot of pain with this. Review of Systems Constitutional: reports: Myalgias. denies: Fever, Chills Eyes: denies: Decreased vision Ears: denies: Ear pain Nose: denies: Congestion Throat: denies: Sore throat Respiratory: denies: Cough GI: denies: Vomiting Skin: reports: Lesions Musculoskeletal: reports: Extremity pain. 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 : None HEENT: None Psych: None Musculoskeletal: None Derm: None - Past Surgical History Past Surgical History: No - Present Medications Home Medications: Ambulatory Orders Medication Instructions Recorded Confirmed Albuterol Sulf [Ventolin Hfa 1 - 2 puffs INH Q4HR PRN #1 inhaler 08/05/18 Inhaler] Lancets/Blood Glucose Strips [Fora 1 each QID #120 combo..pkg 08/05/18 [id number] Strp-Lnct] Nicotine 21 mg Patch [Nicoderm] 1 patch TOP DAILY #30 patch 08/05/18 metFORMIN [Glucophage] 500 mg PO BIDWM #60 tablet 08/05/18 Atorvastatin [Lipitor] 1 tab PO DAILY 10/19/18 10/19/18 Fluticasone/Salmeterol [Advair 1 puffs IH BID PRN 10/19/18 250-50 Diskus] Hydrocodone/Acetaminophen 1 - 2 each PO Q6H PRN #14 tablet 10/19/18 [Hydrocodon-Acetaminophen 5-325] Losartan [Cozaar] 25 mg PO DAILY 10/19/18 10/19/18 Sulfamethoxazole/Trimethoprim 1 each PO BID #14 tablet 10/19/18 [Sulfamethoxazole-Tmp Ds Tablet] - Allergies Allergies/Adverse Reactions: Allergies Allergy/AdvReac Type Severity Reaction Status Date / Time No Known Drug Allergies Allergy Verified 10/19/18 13:02 - Social History Does the pt smoke?: Yes Smoking Status: Current every day smoker Does the pt drink ETOH?: No Does the pt have substance abuse?: No - Immunizations Immunizations are current?: Yes - POLST Patient has POLST: No POLST Status: Full Code PD ED PE NORMAL - Vitals Vital signs reviewed: Yes (tachy and hypertensive ) - General General: Alert and oriented X 3, Well developed/nourished, Other (appears to be in pain ) - HEENT HEENT: Atraumatic, PERRL, EOMI - Neck Neck: Supple, no meningeal sign - Respiratory Respiratory: No respiratory distress - Abdomen Abdomen: Soft, Other (obese abdomen with an area of redness and swelling above the inguinal ligament on the right side. There is central fluctuance and marked tendernss. The area is about 4cm X 2cm) - Derm Derm: Normal color, Warm and dry - Extremities Extremities: No deformity, No edema - Neuro Neuro: Alert and oriented X 3, boatwright 2-12 intact, No motor deficit, No sensory deficit, Normal speech Eye Opening: Spontaneous Motor: Obeys Commands Verbal: Oriented GCS Score: 15 - Psych Psych: Normal mood, Normal affect Results - Vitals Vitals: Vital Signs - 24 hr 10/19/18 12:57 Temperature 36.6 C Heart Rate 108 H Respiratory 16 Rate Blood Pressure 133/91 H O2 Saturation 96 Oxygen O2 Source Room air Procedures - Abscess I&D (location) right inguinal Preparation: Chlorhexadine, Lidocaine 1% Incision: Incised with scalpel, Purulent drainage, Loculations broken, Irrigated, Packed, Culture obtained Other: Dressing applied, Antibiotic prescribed. No: Pt tolerated well PD MEDICAL DECISION MAKING - ED course Complexity details: reviewed results, re-evaluated patient, considered differential, d/w patient ED course: 33-year-old female with a right inguinal abscess as the abscess incised and drained there is a fair amount of pus from the area and a culture is obtained. The abscess cavity is rinsed with fluid and packed with 10 cm of quarter inch iodoform gauze. Departure - Departure Disposition: 01 Home, Self Care Clinical Impression: Abscess Condition: Stable Instructions: ED Abscess IandD Follow-Up: KEHINDE LAWSON [Primary Care Provider] - Prescriptions: Hydrocodone/Acetaminophen [Hydrocodon-Acetaminophen 5-325] 1 - 2 each PO Q6H PRN #14 tablet PRN Reason: pain Sulfamethoxazole/Trimethoprim [Sulfamethoxazole-Tmp Ds Tablet] 1 each PO BID #14 tablet
[2018-10-19 14:13] VITALS: BP 137/96
== END 2018-10-19 14:14 | disposition home or self-care (01) ==
LOC: ED 12:54
DX: L02.214 Cutaneous abscess of groin (principal); E11.9 Type 2 diabetes mellitus without complications
CPT/HCPCS: 10060; 87070; 87077; 87205; 99283

== ENCOUNTER 2019-12-21 21:35 | Emergency (ER) | payer OTHER ==
--- NOTE | 2019-12-22 01:08 | ED Physician Documentation ---
PD HPI SKIN - Stated complaint Stated Complaint: ABSCESS - Chief complaint Chief Complaint: Wound - History obtained from History obtained from: Patient - History of Present Illness Timing - onset: How many weeks ago (1) Timing - details: Gradual onset Pain level now: 6 Location: Abdomen Quality / character: Painful Similar symptoms before: Diagnosis (abscess) Recently seen: Clinic - Additional information Additional information: c/o 1 week of steadily worsening abdominal "boil" (per patient). it has been gr adually increasing in size and intensity of pain. 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 HEENT: None Psych: None Musculoskeletal: None Derm: None - Past Surgical History Past Surgical History: No - Present Medications Home Medications: Ambulatory Orders Medication Instructions Recorded Confirmed Albuterol Sulf [Ventolin Hfa 1 - 2 puffs INH Q4HR PRN #1 inhaler 08/05/18 Inhaler] Lancets/Blood Glucose Strips [Fora 1 each MC QID #120 combo..pkg 08/05/18 [id number] Strp-Lnct] Nicotine 21 mg Patch [Nicoderm] 1 patch TOP DAILY #30 patch 08/05/18 metFORMIN [Glucophage] 500 mg PO BIDWM #60 tablet 08/05/18 Atorvastatin [Lipitor] 1 tab PO DAILY 10/19/18 10/19/18 Fluticasone/Salmeterol [Advair 1 puffs IH BID PRN 10/19/18 250-50 Diskus] Hydrocodone/Acetaminophen 1 - 2 each PO Q6H PRN #14 tablet 10/19/18 [Hydrocodon-Acetaminophen 5-325] Losartan [Cozaar] 25 mg PO DAILY 10/19/18 10/19/18 Sulfamethoxazole/Trimethoprim 1 each PO BID #14 tablet 10/19/18 [Sulfamethoxazole-Tmp Ds Tablet] Cephalexin [Keflex] 500 mg PO Q6H #28 capsule 12/22/19 Hydrocodone/Acetaminophen 1 - 2 each PO Q6H PRN #14 tablet 12/22/19 [Hydrocodon-Acetaminophen 5-325] Sulfamethox/Trimeth 800/160 1 each PO BID #14 tablet 12/22/19 [Bactrim Ds 800/160] - Allergies Allergies/Adverse Reactions: Allergies Allergy/AdvReac Type Severity Reaction Status Date / Time No Known Drug Allergies Allergy Verified 10/19/18 13:02 - Social History Does the pt smoke?: Yes Smoking Status: Current every day smoker Does the pt drink ETOH?: No Does the pt have substance abuse?: No - Immunizations Immunizations are current?: Yes - POLST Patient has POLST: No POLST Status: Full Code PD ED PE NORMAL - Vitals Vital signs reviewed: Yes - General General: Alert and oriented X 3, No acute distress, Well developed/nourished PD ED PE EXPANDED - Derm Derm: Abscess SKin visual: 1 - abscess (erythematous, fluctuant, tender mass) Results - Vitals Vitals: Vital Signs - 24 hr 12/21/19 12/22/19 12/22/19 21:42 01:29 02:29 Temperature 37 C 36.6 C 36.7 C Heart Rate 103 H 76 84 Respiratory 20 18 18 Rate Blood Pressure 148/86 H 135/76 H 125/78 O2 Saturation 96 95 95 Oxygen O2 Source Room air - Labs Labs: Microbiology 12/22/19 02:05 Wound Culture - Preliminary Abscess Procedures - Abscess I&D (location) Abdomen Preparation: Chlorhexadine, Alcohol, Lidocaine 1% Incision: Incised with scalpel, Purulent drainage, Loculations broken, Culture obtained Other: Pt tolerated well, Dressing applied, Antibiotic prescribed PD MEDICAL DECISION MAKING - ED course Complexity details: considered differential, d/w patient Departure - Departure Disposition: 01 Home, Self Care Clinical Impression: Abscess Condition: Good Instructions: ED Abscess IandD Follow-Up: Jose Pugh MD [Primary Care Provider] - Prescriptions: Cephalexin [Keflex] 500 mg PO Q6H #28 capsule Hydrocodone/Acetaminophen [Hydrocodon-Acetaminophen 5-325] 1 - 2 each PO Q6H PRN #14 tablet PRN Reason: pain Sulfamethox/Trimeth 800/160 [Bactrim Ds 800/160] 1 each PO BID #14 tablet Forms: Activity restrictions Discharge Date/Time: 12/22/19 02:33
[2019-12-22] MEDS ORDERED: LIDOCAINE 1% 2 ML VIAL SUBQ STA (01:14)
[2019-12-22] MEDS ORDERED: HYDROcod/ACETAM 5/325 MG TABLET PO STA (02:21)
[2019-12-22] MEDS ORDERED: cephALEXin 250 MG CAPSULE PO STA (02:22)
[2019-12-22] MEDS ORDERED: BACITRACIN ZINC OINT 1 PACKET TOP STA (02:22)
[2019-12-22 02:30] VITALS: BP 125/78
== END 2019-12-22 02:33 | disposition home or self-care (01) ==
LOC: ED 21:35
DX: L02.211 Cutaneous abscess of abdominal wall (principal); E11.9 Type 2 diabetes mellitus without complications; F17.200 Nicotine dependence, unspecified, uncomplicated; Z79.84 Long term (current) use of oral hypoglycemic drugs
CPT/HCPCS: 10060; 87070; 87205; 99283; A9270

== ENCOUNTER 2020-01-26 14:26 | Outpatient (CLI) | payer OTHER | END 2020-01-26 14:27 | disposition home or self-care (01) | LOC: COV 14:26 | PROVIDERS: ATTEND Family Medicine | DX: R05 Cough (principal); R50.9 Fever, unspecified | CPT/HCPCS: 81599 ==

== ENCOUNTER 2020-07-21 21:51 | Emergency (ER) | payer OTHER ==
--- NOTE | 2020-07-21 21:54 | ED Physician Documentation ---
History of Present Illness - Stated complaint Stated Complaint: F /PX - History obtained from History obtained from: Patient - Additonal information Additional information: 35-year-old female presents with abscess to her left gluteal/anal region. She went to see her doctor about 5 days ago and she was placed on amoxicillin. She reports the swelling and pain is getting worse. She denies fevers she does take metformin. Reports her blood sugars have been in the 100s. Denies any history of ulcerative colitis or Crohn's disease denies any history of any perianal or perirectal abscesses previously or any history of perianal/perirectal fistulas. denies fevers. Review of Systems Constitutional: reports: Reviewed and negative Eyes: reports: Reviewed and negative Ears: reports: Reviewed and negative Nose: reports: Reviewed and negative Throat: reports: Reviewed and negative Cardiac: reports: Reviewed and negative Respiratory: reports: Reviewed and negative GI: reports: Reviewed and negative : reports: Reviewed and negative Skin: reports: Other (ebony anal abscess) Musculoskeletal: reports: Reviewed and negative Neurologic: reports: Reviewed and negative Psychiatric: reports: Reviewed and negative Endocrine: reports: Reviewed and negative Immunocompromised: reports: Reviewed and negative PD PAST MEDICAL HISTORY - Past Medical History Cardiovascular: Other Respiratory: COPD Neuro: None Endocrine/Autoimmune: Type 2 diabetes GI: None 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 HEENT: None Psych: None Musculoskeletal: None Derm: None - Past Surgical History Past Surgical History: No - Present Medications Home Medications: Ambulatory Orders Medication Instructions Recorded Confirmed Lancets/Blood Glucose Strips [Fora 1 each QID #120 combo..pkg 08/05/18 06/28/20 [id number] Strp-Lnct] metFORMIN [Glucophage] 500 mg PO BIDWM #60 tablet 08/05/18 06/28/20 Sulfamethox/Trimeth 800/160 1 each PO BID #14 tablet 06/28/20 [Bactrim Ds 800/160] Amox/Clav 875/125 [Augmentin] 1 each PO Q12H 10 Days #20 tablet 07/21/20 Hydrocodone/Acetaminophen [[place]izer[place] 1 each PO Q6HR PRN #7 tablet 07/21/20 5-325 Tablet] Ondansetron Odt [Zofran Odt] 4 mg TL Q6H PRN #10 tablet 07/21/20 - Allergies Allergies/Adverse Reactions: Allergies Allergy/AdvReac Type Severity Reaction Status Date / Time No Known Drug Allergies Allergy Verified 07/21/20 22:00 - Social History Does the pt smoke?: Yes Smoking Status: Current every day smoker Does the pt drink ETOH?: No Does the pt have substance abuse?: No - Immunizations Immunizations are current?: Yes - POLST Patient has POLST: No POLST Status: Full Code PD ED PE NORMAL - Vitals Vital signs reviewed: Yes - General General: Alert and oriented X 3, No acute distress, Well developed/nourished - HEENT HEENT: PERRL - Neck Neck: Supple, no meningeal sign - Cardiac Cardiac: RRR, No murmur - Respiratory Respiratory: Clear bilaterally - Abdomen Abdomen: Normal bowel sounds, Soft, Non tender, Non distended - Rectal Rectal: Other (large 5-3 cm ebony anal abscess. no fistulas, no fissures. 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 dressing applied. packing attempted to be placed but would not stay. will keep open and allow to drain for 24-48 hours and follow up for wound check at that time.), Loculations broken, Irrigated, Other Other: Pt tolerated well, Dressing applied, Antibiotic prescribed PD MEDICAL DECISION MAKING - ED course Complexity details: re-evaluated patient (verbal consent obtained for I&D. I&D performed, patient had immediate relief of pain and feels much better after procedure. will place on augmentin, wound not packed. follow up for wound check in 24-48 hours.), considered differential (ebony anal abscess), d/w patient Departure - Departure Disposition: 01 Home, Self Care Clinical Impression: Perianal abscess Condition: Stable Instructions: Perianal Abscess Follow-Up: your, doctor [Other] Jeff Adame MD [Provider Admit Priv/Credential] - Tomorrow Prescriptions: Hydrocodone/Acetaminophen [[place] 5-325 Tablet] 1 each PO Q6HR PRN #7 tablet PRN Reason: Pain Amox/Clav 875/125 [Augmentin] 1 each PO Q12H 10 Days #20 tablet Ondansetron Odt [Zofran Odt] 4 mg TL Q6H PRN #10 tablet PRN Reason: Nausea / Vomiting Comments: Take Augmentin as directed. Discontinue amoxicillin. Keep wound dressed and protected and apply topical antibiotic such as over the counter neosporin twice a day. Follow-up on Friday for a wound check. return for worsening pain, fevers or any concerns. Discharge Date/Time: 07/22/20 00:15
[2020-07-21 22:00] VITALS: BP 146/89
[2020-07-21] MEDS ORDERED: LIDOCAINE 1%-EPI 1:100000 20 ML MDV SUBQ STA (22:22)
[2020-07-21] MEDS ORDERED: HYDROmorphone 0.5 MG/0.5 ML SYRINGE IM STA (22:34)
[2020-07-21] MEDS ORDERED: BACITRACIN ZINC OINT 1 PACKET TOP STA (23:16)
[2020-07-21] MEDS ORDERED: AMOX/CLAV 875 MG/125 MG TABLET PO STA (23:17)
== END 2020-07-22 00:15 | disposition home or self-care (01) ==
LOC: ED 21:51
DX: K61.0 Anal abscess (principal); E11.9 Type 2 diabetes mellitus without complications; F17.200 Nicotine dependence, unspecified, uncomplicated; Z79.84 Long term (current) use of oral hypoglycemic drugs
CPT/HCPCS: 46050; 96372; 99283; 99284; A9270; J1170

== ENCOUNTER 2021-10-22 14:14 | Outpatient (CLI) | payer OTHER | END 2021-10-22 23:59 | disposition home or self-care (01) | LOC: LAB.N 14:14 | PROVIDERS: ATTEND Physician Assistant | DX: R05.9 Cough, unspecified (principal); Z20.822 Contact with and (suspected) exposure to COVID-19 ==

== ENCOUNTER 2023-01-30 12:52 | Emergency (ER) | payer OTHER ==
[2023-01-30] MEDS ORDERED: SODIUM CHLORIDE 0.9% 1,000 ML IV STA (13:08)
[2023-01-30] MEDS ORDERED: ONDANSETRON 4 MG/2 ML VIAL IVP STA (13:08)
[2023-01-30] MEDS ORDERED: KETOROLAC 15 MG/ML VIAL IVP STA (13:08)
--- NOTE | 2023-01-30 13:10 | ED Physician Documentation ---
PD HPI ABD PAIN - Stated complaint Stated Complaint: ABD PX - Chief complaint Chief Complaint: Abd Pain - History obtained from History obtained from: Patient - Additional information Additional information: 37-year-old woman without history of abdominal surgeries presents with progressive upper abdominal pain radiating to the low back like cramping and labor starting 36 hours ago and severe since last night. Its associate with nausea and one episode of vomiting. She has not had any bowel output since the first day. Never had this before. States no possibility of . No bleeding or fluid discharge from the vagina. 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 HEENT: None Psych: None Musculoskeletal: None Derm: None - Past Surgical History Past Surgical History: No - Present Medications Home Medications: Ambulatory Orders Medication Instructions Recorded Confirmed Ondansetron Odt [Zofran Odt] 4 mg TL Q6H PRN #10 tablet 07/21/20 01/30/23 HYDROcod/ACETAM 5/325 [[place] 5/325] 1 - 2 tab PO Q6H PRN #15 tablet 01/30/23 Metoclopramide [Reglan] 10 mg PO Q6H PRN #60 tablet 01/30/23 Omeprazole 40 mg PO DAILY #30 cap 01/30/23 Ondansetron Odt [Zofran] 4 mg TL Q6H PRN #10 tablet 01/30/23 - Allergies Allergies/Adverse Reactions: Allergies Allergy/AdvReac Type Severity Reaction Status Date / Time No Known Drug Allergies Allergy Verified 01/30/23 13:01 - Social History Does the pt smoke?: Yes Smoking Status: Current every day smoker Does the pt drink ETOH?: No Does the pt have substance abuse?: No - Immunizations Immunizations are current?: Yes - POLST Patient has POLST: No POLST Status: Full Code PD ED PE NORMAL - Vitals Vital signs reviewed: Yes - General General: Alert and oriented X 3, Other (She appears uncomfortable) - HEENT HEENT: PERRL, EOMI - Neck Neck: Supple, no meningeal sign, No bony TTP - Cardiac Cardiac: RRR, No murmur - Respiratory Respiratory: No respiratory distress, Clear bilaterally - Abdomen Abdomen: Other (Bowel sounds are present but diminished, abdomen is distended with significant diffuse tenderness.) - Back Back: No CVA TTP, No spinal TTP - Derm Derm: Normal color, Warm and dry, No rash - Extremities Extremities: No edema, No calf tenderness / cord - Neuro Neuro: Alert and oriented X 3, Normal speech Results - Vitals Vitals: Vital Signs - 24 hr 01/30/23 01/30/23 12:53 14:26 Temperature 36.1 C L 35.9 C L Heart Rate 111 H 81 Respiratory 16 18 Rate Blood Pressure 149/92 H 128/110 H O2 Saturation 97 98 Oxygen O2 Source Room air - Labs Labs: Laboratory Tests 01/30/23 01/30/23 01/30/23 13:13 13:22 13:22 WBC 12.1 H RBC 4.99 Hgb 14.8 Hct 45.0 MCV 90.2 MCH 29.7 MCHC 32.9 RDW 13.6 Plt Count 298 MPV 10.2 Neut # (Auto) 8.2 H Lymph # (Auto) 2.8 [place] # (Auto) 0.7 Eos # (Auto) 0.3 Baso # (Auto) 0.1 Absolute Nucleated RBC 0.00 Nucleated RBC % 0.0 Sodium 136 Potassium 4.0 Chloride 100 L Carbon Dioxide 26 Anion Gap 10.0 BUN 13 Creatinine 0.7 Estimated GFR (MDRD) 95 Glucose 281 H Calcium 8.8 Total Bilirubin 0.4 AST 23 ALT 26 Alkaline Phosphatase 76 Total Protein 8.0 Albumin 4.1 Globulin 3.9 Albumin/Globulin Ratio 1.1 Lipase 42 Urine Color DARK YELLOW Urine Clarity CLEAR Urine pH 6.0 Ur Specific [place] >=1.030 H Urine Protein TRACE Urine Glucose (UA) NEGATIVE Urine Ketones NEGATIVE Urine Occult Blood TRACE-INTA Urine Nitrite NEGATIVE Urine Bilirubin NEGATIVE Urine Urobilinogen 0.2 (NORMAL) Ur Leukocyte Esterase NEGATIVE Ur Microscopic Review NOT INDICATED Urine Culture Comments NOT INDICATED Urine HCG, Qual NEGATIVE - Rads (name of study) CT of the abdomen pelvis with IV contrast demonstrates hepatic steatosis, otherwise read as normal Relevant Findings:: Final report received, EMP independent interpretation of test (She does have fairly significant gastric contents given that she has not eaten since 8 AM) PD Medical Decision Making - ED course Complexity details: reviewed old records (Prior discharge summary from admission for COPD a few years ago.), reviewed results (CBC reviewed with mild leukocytosis. CMP reviewed with hyperglycemia at 281, otherwise negative. Urine concentrated but no signs of infection, urine test was negati ve.) ED course: 37-year-old woman presents with severe abdominal pain that has been going on for the last 36 hours. Upper abdominal pain radiating to the back. She is never had this before. Initially did not want narcotics because she may have been driving but did not get much relief with Toradol and then decided she would have her come pick her up. She was administered a milligram of Dilaudid with modest relief of her pain. Around that time she came back from [place] which was read as hepatic steatosis, but on my personal review I felt that she had a fairly dilated gastrum given that she had not eaten since 8 AM so I wonder if she has some partial gastric outlet obstruction. Subsequent to that she was administered some IV Reglan with resolution of her abdominal pain so I think nondiabetic gastroparesis or gastric outlet obstruction is likely. This was discussed with her and need for follow-up with GI was stressed for possible EGD. Departure - Departure Disposition: 01 Home, Self Care Clinical Impression: Abdominal pain Qualifiers: Abdominal location: epigastric Qualified Code(s): R10.13 - Epigastric pain Condition: Good Record reviewed to determine appropriate education?: Yes Instructions: ED Abdominal Pain Female Non-Specific Abdominal Pain Follow-Up: Beata Chacko PA-C [Provider Admit Priv/Credential] - Prescriptions: HYDROcod/ACETAM 5/325 [[place] 5/325] 1 - 2 tab PO Q6H PRN #15 tablet PRN Reason: Pain Omeprazole 40 mg PO DAILY #30 cap Metoclopramide [Reglan] 10 mg PO Q6H PRN #60 tablet PRN Reason: nausea or headache Ondansetron Odt [Zofran] 4 mg TL Q6H PRN #10 tablet PRN Reason: Nausea / Vomiting Comments: As discussed, the notable thing was that you had a significant mount of food in your stomach despite not have eaten since 8 AM on your CAT scan. Because of that we administered some Reglan which is a medication that helps food passed from the stomach easier and that significantly improved her pain. The presumption would be that she have some scar tissue or something blocking the passage of food from your stomach into the small bowel. Because of that I want you eating a soft diet as discussed and you should follow-up for GI referral. AYLIN Chacko who is numbers on this form is on-call for ED follow-ups for next week, call her office tomorrow for the next available appointment. Also your blood sugar today was 281 which is worrisome for potential diabetes and should be discussed with your primary as well. The only other pertinent finding from work-up today is a fatty liver, avoid alcohol and do your best to lose weight. I [facility] your [facility] [place]. I am prescribing a short course of narcotic pain medication for you. These are potentially dangerous and addictive medications that should be used carefully. These medications may constipate you. Take an pbbl-fgv-panyshi stool softener (docusate) twice daily with plenty of water while taking these medications. If you go 24 hours without a bowel movement, take kaks-wah-xswskdy miralax, per package instructions. Do not drink or drive while taking these medications. If you received narcotic or sedating medications while in the emergency department, do not drive for 24 hours. Store this medication in a safe, secure place and out of reach of children. It is a violation of federal law to give or sell this medication to another person or to use in a manner other than prescribed. The ED will not refill narcotic prescriptions, including prescriptions lost or stolen. To dispose of unwanted medications: 1. [facility] at [address] in [place] has a medication drop box. They accept prescription medications (in pill form) Friday through Friday 9:00 a.m. to 5:00 p.m. 2. [facility] [employer] [facility] accepts prescription medications (in pill form only) for disposal year round. Call for more information. 3. Contact the [facility] for the next [facility] sponsored prescription drug collection event. , [phone], or [phone]; Note that many narcotic pain relievers also contain Tylenol/acetaminophen. Please ensure that your total dose of acetaminophen from all sources does not exceed 3 g (3000 mg) per day.
[2023-01-30 13:25] LABS: BILIRUBIN,URINE NEGATIVE (NEGATIVE); GLUCOSE, URINE (UA) NEGATIVE (NEGATIVE); KETONES,URINE (UA) NEGATIVE (NEGATIVE); LEUKOCYTE ESTERASE, URINE NEGATIVE (NEGATIVE); NITRITE,URINE NEGATIVE (NEGATIVE); OCCULT BLOOD,URINE TRACE-INTA (NEGATIVE); PROTEIN,URINE TRACE mg/dL (NEGATIVE); UROBILINOGEN,URINE 0.2 (NORMAL) E.U./dL (NORMAL)
[2023-01-30 13:28] LABS: CLARITY,URINE CLEAR (CLEAR); HCG UR QUAL NEGATIVE
[2023-01-30 13:28] LABS: BASOPHILS # (AUTO) 0.1 10^3/uL (0.0-0.1); BASOPHILS % (AUTO) 0.4 %; EOSINOPHILS # (AUTO) 0.3 10^3/uL (0.0-0.7); EOSINOPHILS % (AUTO) 2.1 %; HGB - HEMOGLOBIN 14.8 g/dL (12.0-16.0); LYMPHOCYTES # (AUTO) 2.8 10^3/uL (1.5-3.5); LYMPHOCYTES % (AUTO) 23.2 %; MEAN CORPUSCULAR HEMOGLOBIN 29.7 pg (27.0-31.0); MEAN CORPUSCULAR HGB CONC 32.9 g/dL (32.0-36.0); MEAN CORPUSCULAR VOLUME 90.2 fL (81.0-99.0); MEAN PLATELET VOLUME 10.2 fL (7.9-10.8); MONOCYTES # (AUTO) 0.7 10^3/uL (0.0-1.0); MONOCYTES % (AUTO) 5.5 %; NEUTROPHILS # (AUTO) 8.2 10^3/uL (1.5-6.6); NEUTROPHILS % (AUTO) 68.2 %; PLT - PLATELET COUNT 298 10^3/uL (130-450); RED BLOOD COUNT 4.99 10^6/uL (4.20-5.40); RED CELL DISTRIBUTION WIDTH 13.6 % (12.0-15.0); WHITE BLOOD COUNT 12.1 x10^3/uL (4.8-10.8)
[2023-01-30] MEDS ORDERED: HYDROmorphone 1 MG/ML CARPUJECT IVP STA (13:47)
[2023-01-30 14:05] LABS: ALBUMIN 4.1 g/dL (3.2-5.5); ALBUMIN/GLOBULIN RATIO 1.1 (1.0-2.2); BILIRUBIN,TOTAL 0.4 mg/dL (0.2-1.0); CALCIUM 8.8 mg/dL (8.5-10.3); CREATININE 0.7 mg/dL (0.4-1.0)
[2023-01-30] MEDS ORDERED: iohexoL-300 100 ML VIAL ONE (14:09)
[2023-01-30] MEDS ORDERED: METOCLOPRAMIDE 10 MG/2 ML VIAL IVP STA (14:26)
[2023-01-30] MEDS ORDERED: iohexoL-300 100 ML VIAL IVP ONE (14:32)
--- NOTE | 2023-01-30 15:10 | CT Report ---
PROCEDURE: ABDOMEN/PELVIS W INDICATIONS: IV only, central abd pain CONTRAST: 100ml Omnipaque 300 TECHNIQUE: After the administration of IV contrast, 5 mm thick sections acquired from the diaphragms to the symp hysis. 5 mm thick coronal and sagittal reformats were acquired. For radiation dose reduction, the f ollowing was used: automated exposure control, adjustment of mA and/or kV according to patient size. COMPARISON: None. FINDINGS: Image quality: Excellent. ABDOMEN: Lung bases: Dependent atelectasis in posterior aspect of bilateral lower lung rendon are seen. Heart size is normal. Solid organs: Liver and spleen are normal in size and enhancement. Hepatic steatosis is seen. Gallb ladder is within normal limits. Biliary system is non dilated. Pancreas enhances normally. No adre nal nodules. Kidneys demonstrate normal size and enhancement, without hydronephrosis. Peritoneum and bowel: There is no bowel obstruction. No gastric or small bowel wall thickening. No de finite colonic wall thickening is noted. No mesenteric fat stranding. There is no abscess collection. No free fluid of free air. Appendix is visualized and is within normal limits. Nodes and vessels: No retroperitoneal or mesenteric adenopathy by size criteria. Aorta and inferior vena cava are normal in size. Miscellaneous: Small umbilical hernia is seen containing fat only. PELVIS: Genitourinary: Bladder wall thickness is normal. Miscellaneous: No inguinal hernias or adenopathy. Bones: No suspicious bony lesions. No vertebral body compression fractures. IMPRESSION: 1. No acute inflammatory process is seen in abdomen or pelvis. No free fluid of free air. Normal appe ndix. No bowel obstruction. 2. Hepatic steatosis, no discrete hepatic lesion. Reviewed by: Andrzej Moore MD on 01/30/2023 2:08 PM AKDT Approved by: Andrzej Moore MD on 01/30/2023 2:08 PM AKDT Station ID: [id number]
[2023-01-30 15:28] VITALS: BP 113/60
== END 2023-01-30 15:45 | disposition home or self-care (01) ==
LOC: ED 12:52
DX: R10.13 Epigastric pain (principal); F17.200 Nicotine dependence, unspecified, uncomplicated
CPT/HCPCS: 36415; 74177; 80053; 81003; 81025; 83690; 85025; 96374; 96375; 99284; 99285; J1170; J2765; Q9967; 81001; 87086

== ENCOUNTER 2023-01-31 18:51 | Emergency (ER) | payer OTHER ==
[2023-01-31 19:24] LABS: BASOPHILS # (AUTO) 0.1 10^3/uL (0.0-0.1); BASOPHILS % (AUTO) 0.4 %; EOSINOPHILS # (AUTO) 0.3 10^3/uL (0.0-0.7); EOSINOPHILS % (AUTO) 2.5 %; HCT - HEMATOCRIT 42.5 % (37.0-47.0); HGB - HEMOGLOBIN 13.8 g/dL (12.0-16.0); LYMPHOCYTES # (AUTO) 3.5 10^3/uL (1.5-3.5); LYMPHOCYTES % (AUTO) 27.6 %; MEAN CORPUSCULAR HGB CONC 32.5 g/dL (32.0-36.0); MEAN CORPUSCULAR VOLUME 92.4 fL (81.0-99.0); MEAN PLATELET VOLUME 9.9 fL (7.9-10.8); MONOCYTES # (AUTO) 0.7 10^3/uL (0.0-1.0); MONOCYTES % (AUTO) 5.3 %; NEUTROPHILS % (AUTO) 63.8 %; PLT - PLATELET COUNT 274 10^3/uL (130-450); RED CELL DISTRIBUTION WIDTH 13.6 % (12.0-15.0); WHITE BLOOD COUNT 12.6 x10^3/uL (4.8-10.8)
[2023-01-31 19:38] LABS: ALBUMIN/GLOBULIN RATIO 1.2 (1.0-2.2); BILIRUBIN,TOTAL 0.2 mg/dL (0.2-1.0); CALCIUM 8.9 mg/dL (8.5-10.3); CREATININE 0.8 mg/dL (0.4-1.0); POTASSIUM 3.9 mmol/L (3.5-5.0); TOTAL PROTEIN 7.3 g/dL (6.7-8.2)
[2023-01-31] MEDS ORDERED: ERYTHROMYCIN BASE DR 250 MG TABLET PO STA (19:58)
[2023-01-31] MEDS ORDERED: SODIUM CHLORIDE 0.9% 1,000 ML IV STA (19:58)
[2023-01-31] MEDS ORDERED: HYDROmorphone 1 MG/ML CARPUJECT IVP STA (19:58)
--- NOTE | 2023-01-31 20:01 | ED Physician Documentation ---
PD HPI ABD PAIN - Stated complaint Stated Complaint: ABD PX - Chief complaint Chief Complaint: Abd Pain - History obtained from History obtained from: Patient - Additional information Additional information: This is a 37-year-old woman with history of heavy tobacco abuse and no history of abdominal surgeries who I saw yesterday for about a day and a half of cramping upper abdominal pain radiating to the low back. She had a work-up demonstrating a white count of 12,000, blood glucose of 281, negative test. She had a CT officially read as normal, but with a dilated gastrum on my view that had not matched up with her report of not having eaten in about [address] We trialed some Reglan in the department yesterday and via IV that was pretty successful so was sent home with prescriptions for hydrocodone, omeprazole, Reglan, and Zofran. She filled these prescriptions and is taking them but continues to have upper abdominal pain with nausea. There is no vomiting today. She has had scant bowel output but is not really eating much. No fevers. PD PAST MEDICAL HISTORY - Past Medical History Cardiovascular: Other Respiratory: COPD Neuro: None Endocrine/Autoimmune: Type 2 diabetes GI: None [employer]: Other : None HEENT: None Psych: None Musculoskeletal: None Derm: None - Past Surgical History Past Surgical History: No - Present Medications Home Medications: Ambulatory Orders Medication Instructions Recorded Confirmed Ondansetron Odt [Zofran Odt] 4 mg TL Q6H PRN #10 tablet 07/21/20 01/30/23 HYDROcod/ACETAM 5/325 [[place] 5/325] 1 - 2 tab PO Q6H PRN #15 tablet 01/30/23 Metoclopramide [Reglan] 10 mg PO Q6H PRN #60 tablet 01/30/23 Omeprazole 40 mg PO DAILY #30 cap 01/30/23 Ondansetron Odt [Zofran] 4 mg TL Q6H PRN #10 tablet 01/30/23 Erythromycin Base [Erythromycin] 250 mg PO TID #30 tab 01/31/23 - Allergies Allergies/Adverse Reactions: Allergies Allergy/AdvReac Type Severity Reaction Status Date / Time No Known Drug Allergies Allergy Verified 01/31/23 19:03 - Social History Does the pt smoke?: Yes Smoking Status: Current every day smoker Does the pt drink ETOH?: No Does the pt have substance abuse?: No - Immunizations Immunizations are current?: Yes - POLST Patient has POLST: No POLST Status: Full Code PD ED PE NORMAL - Vitals Vital signs reviewed: Yes - General General: Alert and oriented X 3, No acute distress - Abdomen Abdomen: Normal bowel sounds, Soft, Non tender - Neuro Neuro: Alert and oriented X 3, Normal speech - Psych Psych: Normal mood, Normal affect Results - Vitals Vitals: Vital Signs - 24 hr 01/31/23 01/31/23 18:57 20:41 Temperature 36.8 C Heart Rate 92 75 Respiratory 22 16 Rate Blood Pressure 120/89 H 135/76 H O2 Saturation 98 98 Oxygen O2 Source Room air - Labs Labs: Laboratory Tests 01/31/23 01/31/23 01/31/23 19:17 19:17 20:08 WBC 12.6 H RBC 4.60 Hgb 13.8 Hct 42.5 MCV 92.4 MCH 30.0 MCHC 32.5 RDW 13.6 Plt Count 274 MPV 9.9 Neut # (Auto) 8.0 H Lymph # (Auto) 3.5 Dougherty # (Auto) 0.7 Eos # (Auto) 0.3 Baso # (Auto) 0.1 Absolute Nucleated RBC 0.00 Nucleated RBC % 0.0 Sodium 139 Potassium 3.9 Chloride 102 Carbon Dioxide 28 Anion Gap 9.0 BUN 12 Creatinine 0.8 Estimated GFR (MDRD) 81 L Glucose 172 H Calcium 8.9 Total Bilirubin 0.2 AST 19 ALT 27 Alkaline Phosphatase 67 Total Protein 7.3 Albumin 4.0 Globulin 3.3 Albumin/Globulin Ratio 1.2 Lipase 41 Urine Color YELLOW Urine Clarity HAZY Urine pH 6.0 Ur Specific [place] 1.025 Urine Protein NEGATIVE Urine Glucose (UA) NEGATIVE Urine Ketones NEGATIVE Urine Occult Blood TRACE-INTA Urine Nitrite NEGATIVE Urine Bilirubin NEGATIVE Urine Urobilinogen 0.2 (NORMAL) Ur Leukocyte Esterase TRACE H Urine RBC 0-5 Urine WBC 4-5 Ur Squamous Epith Cells MOD Squamous H Urine Bacteria Moderate H Ur Microscopic Review INDICATED Urine Culture Comments NOT INDICATED PD Medical Decision Making - ED course Complexity details: reviewed results (CBC showing similar white count yesterday, otherwise normal. CMP normal with the exception of hyperglycemia improved since yesterday.) ED course: 37-year-old woman presents with continued upper abdominal pain radiating to the back with vomiting. Work-up yesterday as discussed above. She was administered some oral erythromycin IV fluids. After that she was feeling somewhat better but relapsed with regards to nausea after p.o. challenge. Subsequently was administered IV Reglan and her pain again resolved and she requested discharge. Departure - Departure Disposition: Home, Self Care Clinical Impression: Abdominal pain Condition: Good Record reviewed to determine appropriate education?: Yes Instructions: ED Abdominal Pain Female Non-Specific Abdominal Pain Prescriptions: Erythromycin Base [Erythromycin] 250 mg PO TID #30 tab Comments: I sent 1 new prescription down to [facility] in [place] that she can add to the prescriptions we gave you yesterday. Glad you have an appointment with a n primary next Friday make sure to keep that. Return for new or worsening symptoms or uncontrolled symptoms.
[2023-01-31 20:14] LABS: BILIRUBIN,URINE NEGATIVE (NEGATIVE); GLUCOSE, URINE (UA) NEGATIVE (NEGATIVE); KETONES,URINE (UA) NEGATIVE (NEGATIVE); LEUKOCYTE ESTERASE, URINE TRACE (NEGATIVE); NITRITE,URINE NEGATIVE (NEGATIVE); OCCULT BLOOD,URINE TRACE-INTA (NEGATIVE); PROTEIN,URINE NEGATIVE (NEGATIVE); UROBILINOGEN,URINE 0.2 (NORMAL) E.U./dL (NORMAL)
[2023-01-31 20:15] LABS: CLARITY,URINE HAZY (CLEAR)
[2023-01-31 20:23] LABS: BACTERIA,URINE Moderate /HPF (None Seen); RBC,URINE 0-5 /HPF (0-5); SQUAMOUS EPITHELIAL CELL,UR MOD Squamous (<= Few)
[2023-01-31] MEDS ORDERED: METOCLOPRAMIDE 10 MG/2 ML VIAL IVP STA (21:15)
[2023-01-31 22:35] VITALS: BP 135/71
== END 2023-01-31 22:33 | disposition home or self-care (01) ==
LOC: ED 18:51
DX: R10.10 Upper abdominal pain, unspecified (principal); E11.9 Type 2 diabetes mellitus without complications; F17.200 Nicotine dependence, unspecified, uncomplicated
CPT/HCPCS: 36415; 80053; 81001; 83690; 85025; 96374; 96375; 99283; A9270; J1170; J2765; 81003; 87086

== ENCOUNTER 2023-10-29 09:08 | Outpatient (CLI) | payer OTHER ==
--- NOTE | 2023-10-29 14:47 | XRAY Report ---
PROCEDURE: Thoracic Spine 2 View INDICATIONS: THORACIC BACK PAIN, LUMBAR PAIN TECHNIQUE: 2 views of the thoracic spine were acquired. COMPARISON: None. FINDINGS: Bones: No fractures or dislocations. No suspicious bony lesions. 12 pairs of ribs are noted, and a ppear intact where visualized. Soft tissues: No paravertebral stripe thickening. IMPRESSION: No acute bony abnormality. No significant degenerative change. Reviewed by: Cuauhtemoc Field MD on 10/29/2023 2:46 PM PST Approved by: Cuauhtemoc Field MD on 10/29/2023 2:46 PM PST Station ID: [id number]
--- NOTE | 2023-10-29 14:48 | XRAY Report ---
PROCEDURE: Lumbar Spine 2 View INDICATIONS: THORACIC BACK PAIN, LUMBAR PAIN TECHNIQUE: 3 views of the lumbar spine were acquired. COMPARISON: None. FINDINGS: Bones: 5 [id number] vertebrae are present. There is normal bony alignment. No vertebral body compression fractures. No suspicious bony lesions. Soft tissues: Overlying bowel gas pattern is normal. No suspicious soft tissue calcifications. IMPRESSION: No significant degenerative change. Reviewed by: Cuauhtemoc Field MD on 10/29/2023 2:47 PM PST Approved by: Cuauhtemoc Field MD on 10/29/2023 2:47 PM PST Station ID: [id number]
== END 2023-10-29 09:09 | disposition home or self-care (01) ==
LOC: DI 09:08
PROVIDERS: ATTEND Nurse Practitioner
DX: M54.6 Pain in thoracic spine (principal); M54.16 Radiculopathy, lumbar region

== ENCOUNTER 2024-04-05 08:12 | Outpatient (CLI) | payer OTHER ==
--- NOTE | 2024-04-05 09:25 | XRAY Report ---
PROCEDURE: Hand 3+V LT INDICATIONS: STRAIN OF UNSPECIFIED MUSCLE TECHNIQUE: 3 views of the hand(s) acquired. COMPARISON: None. FINDINGS: Bones: No fractures or dislocations. No suspicious bony lesions. Soft tissues: No suspicious soft tissue calcifications or masses. IMPRESSION: No visualized acute fracture or dislocation. However, occult injury cannot be excluded. Recommend anil rt interval imaging follow-up in 7-10 days as clinically indicated for additional evaluation. Reviewed by: Tonia Knight MD on 04/05/2024 9:24 AM PDT Approved by: Tonia Knight MD on 04/05/2024 9:24 AM PDT Station ID: [id number]
== END 2024-04-05 08:13 | disposition home or self-care (01) ==
LOC: DI 08:12
PROVIDERS: ATTEND Physician Assistant Surgical
DX: S46.912A Strain of unspecified muscle, fascia and tendon at shoulder and upper arm level, left arm, initial encounter (principal)